=== PATIENT | female | born 1960 | race Caucasian/White ===

== ENCOUNTER 2021-10-16 09:03 | Inpatient (IN) | payer MEDICAID ==
[~2021-10-16] VITALS: Ht 162.6 cm; Wt 70.4 kg
[~2021-10-16 09:03] MED LIST: ALBU8HFA PO; LIDOcaine 2% (20 mg/ml) 5ml cardiac syringe ONE; MAGNESIUM SULFATE 4 MEQ/ML (5gm/10ml) injection ONE; NO HOME MEDS; NORepinephrine 1 mg/ml inj IV ONE; albumin (human) 25% 100 ML IV solution IV ONE; aminocaproic acid 250 MG/1 ML inj. ONE; calcium chloride 100 MG/1 ML inj IV ONE; heparin 1,000 units/ml 10ml inj ONE; isoflurane 100ml inhalation liquid IH ONE; methylPREDNISolone sod succ 1000mg vial ONE; phenylephrine 10mg/ml inj. ONE; potassium Cl 2 mEq/ml inj IV ONE; sodium bicarbonate (8.4%) 1 mEq/ml syringe ONE
[2021-10-16 09:52] LABS: BASOPHILS % (AUTO) 0.3 % (0-1); EOSINOPHILS # (AUTO) 0.1 X10'3 (0-0.9); EOSINOPHILS % (AUTO) 0.7 % (0-6); HEMATOCRIT 41.2 % (35.0-45.0); HEMOGLOBIN 14.1 g/dl (12.0-16.0); LYMPHOCYTES # (AUTO) 1.1 X10'3 (1.1-4.8); LYMPHOCYTES % (AUTO) 11.4 % (21-51); MEAN CORPUSCULAR HEMOGLOBIN 31.8 PG (27.0-31.0); MEAN CORPUSCULAR HGB CONC 34.2 g/dL (33.0-36.5); MEAN PLATELET VOLUME 8.6 FL (7.4-10.4); MONOCYTES # (AUTO) 0.9 X10'3 (0-0.9); MONOCYTES % (AUTO) 9.6 % (2-12); NEUTROPHILS # (AUTO) 7.6 X10'3 (1.8-7.7); PLATELET COUNT 175 X10'3 (140-440); RED BLOOD COUNT 4.43 X10'6 (4.20-5.60); RED CELL DISTRIBUTION WIDTH 13.1 % (11.5-14.5); WHITE BLOOD COUNT 9.8 X10'3 (4.5-11.0)
[2021-10-16 10:09] LABS: ALANINE AMINOTRANSFERASE 29 U/L (12-78); ALBUMIN 3.4 G/DL (3.4-5.0); ALBUMIN/GLOBULIN RATIO 0.8 (1.1-1.5); ALKALINE PHOSPHATASE 133 IU/L (46-116); ANION GAP 8 (8-16); ASPARTATE AMINO TRANSFERASE 29 U/L (10-37); BILIRUBIN,TOTAL 0.6 MG/DL (0.1-1.0); BLOOD UREA NITROGEN 14 MG/DL (7-18); BUN/CREATININE RATIO 14.7 (6.6-38.0); CHLORIDE 103 MMOL/L (99-107); CREATININE 0.95 MG/DL (0.40-0.90); GLUCOSE 137 MG/DL (70-104); POTASSIUM 3.9 MMOL/L (3.5-5.1); SODIUM 135 MMOL/L (135-145); TOTAL CARBON DIOXIDE 24.2 MMOL/L (24-32); TOTAL PROTEIN 7.7 G/DL (6.4-8.2); eGFR 60 ML/MIN
[2021-10-16] MEDS ORDERED: iohexol 350MG/ML 100ml bottle IV ONE (10:39)
[2021-10-16] MEDS ORDERED: aspirin 325mg tablet PO ONE (10:50)
[2021-10-16] MEDS ORDERED: ondansetron/PF 4mg/2ml inj IV PRN (11:45)
[2021-10-16] MEDS ORDERED: nitroGLYCERIN 0.4mg SUBLingual tab SL PRN (11:45)
[2021-10-16] MEDS ORDERED: potassium Cl 20 mEq SR tablet PO PRN ×2 (11:45)
[2021-10-16] MEDS ORDERED: PERFLUTREN PROTEIN-A MICROSPHR (Optison) 0.22 MG/ML 3ML VIAL IV ONE (11:45)
[2021-10-16] MEDS ORDERED: aminophylline 250mg/10ml inj. IV PRN (11:45)
[2021-10-16] MEDS ORDERED: regadenoson 0.4mg/5ml syringe IV ONE (11:45)
[2021-10-16] MEDS ORDERED: morphine 2 MG/ML inj. syringe IV PRN ×2 (11:45)
[2021-10-16] MEDS ORDERED: magnesium 2GM in 50ml NS 50 ML IV PRN (11:45)
[2021-10-16] MEDS ORDERED: metoprolol tartrate 1mg/ml inj IV PRN (11:45)
[2021-10-16] MEDS ORDERED: magnesium Cl slow-release 64mg tablet PO PRN (11:45)
[2021-10-16] MEDS ORDERED: heparin 25,000 UNIT/250ml bag 250 ML IV SCH (11:45)
[2021-10-16] MEDS ORDERED: potassium CL 10mEq/100ml bag 100 ML IV PRN (11:45)
[2021-10-16] MEDS ORDERED: magnesium 4gm in 100ml NS 100 ML IV PRN (11:45)
[2021-10-16] MEDS ORDERED: acetaminophen 325mg tablet PO PRN (11:45)
[2021-10-16] MEDS ORDERED: heparin 10,000 units/1 ML INJ IV ONE (11:45)
[2021-10-16 12:44] LABS: APTT 25 SECONDS (22-32)
[2021-10-16 12:50] LABS: MAGNESIUM 1.9 MG/DL (1.5-2.4)
[2021-10-16] MEDS ORDERED: NO HOME MEDS (18:28)
--- NOTE | 2021-10-16 19:04 | NUR ---
assumed care of pt. pt tearful and does not want to be here. encouraged pt to stay, offered assistance, none needed. denies pain aox4 pwd quiros. will CTM
[2021-10-16] MEDS ORDERED: albuterol 2.5 MG/3 ML nebule NEB PRN (19:10)
[2021-10-16] MEDS: CefTRIAXone 2gm/D5W 50ml BAG 50 ML IV SCH (19:11)
[2021-10-16] MEDS: K and/or MAG REPLACEMENT MC SCH (19:46)
--- NOTE | 2021-10-16 20:38 | NUR ---
report to Carolina MALDONADO on pcu
--- NOTE | 2021-10-16 21:30 | NUR ---
Patient in room PCU 3020. I have received report from Constantino MALDONADO and had the opportunity to ask questions and assume patient care.
[2021-10-16 22:00] VITALS: BP 100/68
[2021-10-17] VITALS (16 sets, daily range): BP systolic 48–106; BP diastolic 29–70
--- NOTE | 2021-10-17 00:25 | NUR ---
Informed pt.'s troponin of [address] Brown. He prescribed aspirin 81 mg once daily.
[2021-10-17] MEDS ORDERED: heparin 25,000 UNIT/250ml bag 250 ML IV SCH ×2 (05:40)
[2021-10-17] MEDS ORDERED: heparin 10,000 units/1 ML INJ IV ONE ×2 (05:40)
[2021-10-17] MEDS ORDERED: heparin 10,000 units/1 ML INJ IV PRN (05:40)
--- NOTE | 2021-10-17 06:43 | NUR ---
Problems reprioritized. Patient report given, questions answered & plan of care reviewed with Bhumi MALDONADO.
--- NOTE | 2021-10-17 06:44 | NUR ---
Den Ptt at 2300. Relayed the results to Dr. Brown and pt was to be placed on heparin protocol. I checked both omnicells and no heparin bags available. I called pharmacy and the pharmacist told me to wait until he's able to fill the bag. I waited and by 0500, I talked to the pharmacist to get an update and he was waiting on Dr. brown's approval. Heparin gtt now rescheduled to 0540am. I was unable to start it as a new PTT needs to be drawn and shift change was approaching.
--- NOTE | 2021-10-17 07:02 | NUR ---
Patient in room PCU 3020. I have received report from Carolina Piedra and had the opportunity to ask questions and assume patient care.
[2021-10-17 07:52] LABS: APTT 31 SECONDS (22-32)
[2021-10-17 07:54] LABS: BASOPHILS % (AUTO) 0.3 % (0-1); EOSINOPHILS % (AUTO) 0.4 % (0-6); HEMATOCRIT 37.7 % (35.0-45.0); LYMPHOCYTES # (AUTO) 1.2 X10'3 (1.1-4.8); LYMPHOCYTES % (AUTO) 10.2 % (21-51); MEAN CORPUSCULAR HEMOGLOBIN 31.8 PG (27.0-31.0); MEAN CORPUSCULAR HGB CONC 34.4 g/dL (33.0-36.5); MEAN CORPUSCULAR VOLUME 92.5 FL (78-98); MEAN PLATELET VOLUME 9.2 FL (7.4-10.4); MONOCYTES # (AUTO) 1.3 X10'3 (0-0.9); MONOCYTES % (AUTO) 11.4 % (2-12); NEUTROPHILS # (AUTO) 8.8 X10'3 (1.8-7.7); NEUTROPHILS % (AUTO) 77.7 % (42-75); PLATELET COUNT 212 X10'3 (140-440); RED BLOOD COUNT 4.08 X10'6 (4.20-5.60); RED CELL DISTRIBUTION WIDTH 12.6 % (11.5-14.5); WHITE BLOOD COUNT 11.4 X10'3 (4.5-11.0)
[2021-10-17 07:58] LABS: ALANINE AMINOTRANSFERASE 24 U/L (12-78); ALBUMIN 3.1 G/DL (3.4-5.0); ALBUMIN/GLOBULIN RATIO 0.7 (1.1-1.5); ALKALINE PHOSPHATASE 124 IU/L (46-116); ANION GAP 13 (8-16); ASPARTATE AMINO TRANSFERASE 21 U/L (10-37); BILIRUBIN,TOTAL 0.6 MG/DL (0.1-1.0); BLOOD UREA NITROGEN 18 MG/DL (7-18); CALCIUM 8.8 MG/DL (8.5-10.1); CHLORIDE 100 MMOL/L (99-107); CHOL/HDL RATIO 2.5 (0.00-4.99); CHOLESTEROL 169 MG/DL (0-200); CREATININE 1.06 MG/DL (0.40-0.90); GLUCOSE 107 MG/DL (70-104); HDL CHOLESTEROL 68 MG/DL (35-60); LDL CHOLESTEROL 83 MG/DL (50-100); MAGNESIUM 1.8 MG/DL (1.5-2.4); POTASSIUM 4.1 MMOL/L (3.5-5.1); SODIUM 134 MMOL/L (135-145); TOTAL CARBON DIOXIDE 21.1 MMOL/L (24-32); TOTAL PROTEIN 7.3 G/DL (6.4-8.2); TRIGLYCERIDES 59 MG/DL (20-135); eGFR 53 ML/MIN
[2021-10-17] MEDS: K and/or MAG REPLACEMENT MC SCH ×2 (08:00→20:00)
[2021-10-17] MEDS ORDERED: regadenoson 0.4mg/5ml syringe IV ONE (09:25)
[2021-10-17] MEDS: aspirin 81mg, enteric-coated 1 TAB TABLET.DR PO SCH (10:15)
--- NOTE | 2021-10-17 11:37 | NUR ---
Dr. Francis made aware via [employer] messenger that patient is requesting to speak with her.
[2021-10-17] MEDS: CefTRIAXone 2gm/D5W 50ml BAG 50 ML IV SCH (13:14)
[2021-10-17] MEDS ORDERED: NITR0.4T51 SL ×2 (14:43)
--- NOTE | 2021-10-17 17:56 | NUR ---
Patient has had a chest CT that shows ascending aorta at 3.7cm. Dr. Madera indicated in his note to have repeat heart cath. Will follow along and assist if and where requested.
--- NOTE | 2021-10-17 18:36 | NUR ---
Problems reprioritized. Patient report given, questions answered & plan of care reviewed with Joselin.
[2021-10-17] MEDS: temazepam 15mg capsule PO PRN (21:07)
[2021-10-17] MEDS: acetaminophen 325mg tablet PO PRN (21:07)
[2021-10-17] MEDS: lactobacillus rhamnosus 10,000 MMU CELLS/CAPSULE PO SCH (21:07)
[2021-10-17] MEDS: heparin 10,000 units/1 ML INJ IV PRN (21:24)
[2021-10-18 02:00] VITALS: BP 133/64
[2021-10-18] MEDS: heparin 10,000 units/1 ML INJ IV PRN (05:54)
[2021-10-18 06:00] VITALS: BP 112/56
--- NOTE | 2021-10-18 06:10 | NUR ---
Patient in room PCU 3020. I have received report from Joselin MALDONADO and had the opportunity to ask questions and assume patient care.
[2021-10-18] MEDS: CefTRIAXone 2gm/D5W 50ml BAG 50 ML IV SCH (07:34)
[2021-10-18] MEDS: lactobacillus rhamnosus 10,000 MMU CELLS/CAPSULE PO SCH ×2 (07:38→20:55)
[2021-10-18] MEDS: aspirin 81mg, enteric-coated 1 TAB TABLET.DR PO SCH (07:38)
[2021-10-18] MEDS: K and/or MAG REPLACEMENT MC SCH ×2 (08:00→20:00)
[2021-10-18 08:05] LABS: BASOPHILS % (AUTO) 0.2 % (0-1); EOSINOPHILS # (AUTO) 0.1 X10'3 (0-0.9); EOSINOPHILS % (AUTO) 1.7 % (0-6); HEMATOCRIT 37.7 % (35.0-45.0); HEMOGLOBIN 12.9 g/dl (12.0-16.0); LYMPHOCYTES # (AUTO) 1.1 X10'3 (1.1-4.8); LYMPHOCYTES % (AUTO) 15.1 % (21-51); MEAN CORPUSCULAR HEMOGLOBIN 31.6 PG (27.0-31.0); MEAN CORPUSCULAR HGB CONC 34.1 g/dL (33.0-36.5); MEAN CORPUSCULAR VOLUME 92.6 FL (78-98); MEAN PLATELET VOLUME 9.2 FL (7.4-10.4); MONOCYTES # (AUTO) 0.8 X10'3 (0-0.9); MONOCYTES % (AUTO) 10.7 % (2-12); NEUTROPHILS # (AUTO) 5.2 X10'3 (1.8-7.7); NEUTROPHILS % (AUTO) 72.3 % (42-75); PLATELET COUNT 201 X10'3 (140-440); RED BLOOD COUNT 4.07 X10'6 (4.20-5.60); RED CELL DISTRIBUTION WIDTH 12.6 % (11.5-14.5); WHITE BLOOD COUNT 7.1 X10'3 (4.5-11.0)
[2021-10-18 08:17] LABS: ALANINE AMINOTRANSFERASE 22 U/L (12-78); ALBUMIN 2.9 G/DL (3.4-5.0); ALBUMIN/GLOBULIN RATIO 0.6 (1.1-1.5); ALKALINE PHOSPHATASE 115 IU/L (46-116); ANION GAP 10 (8-16); ASPARTATE AMINO TRANSFERASE 20 U/L (10-37); BILIRUBIN,TOTAL 0.3 MG/DL (0.1-1.0); BLOOD UREA NITROGEN 25 MG/DL (7-18); BUN/CREATININE RATIO 24.3 (6.6-38.0); CALCIUM 8.5 MG/DL (8.5-10.1); CHLORIDE 105 MMOL/L (99-107); CREATININE 1.03 MG/DL (0.40-0.90); GLUCOSE 160 MG/DL (70-104); MAGNESIUM 1.9 MG/DL (1.5-2.4); POTASSIUM 3.7 MMOL/L (3.5-5.1); SODIUM 137 MMOL/L (135-145); TOTAL CARBON DIOXIDE 21.7 MMOL/L (24-32); TOTAL PROTEIN 7.5 G/DL (6.4-8.2); eGFR 55 ML/MIN
[2021-10-18 11:00] VITALS: BP 110/65
--- NOTE | 2021-10-18 11:35 | NUR ---
PAGER ID: [phone] MESSAGE: Re: Abi Oscar. Room: 3020. Can Heparin drip be DC'd? Dr. Madera' note says okay to DC Heparin. -Kamlesh [facility] #[phone] -Dr. Francis paged concerning Pt's Heparin drip.
[2021-10-18 18:00] VITALS: BP 94/62
--- NOTE | 2021-10-18 18:15 | NUR ---
Problems reprioritized. Patient report given, questions answered & plan of care reviewed with Joselin MALDONADO.
[2021-10-18] MEDS: temazepam 15mg capsule PO PRN (20:55)
[2021-10-18 22:00] VITALS: BP 91/57
[2021-10-19] MEDS ORDERED: guaiFENesin 200 MG/10 ML oral syrup UD cup PO PRN
[2021-10-19 02:00] VITALS: BP 96/81
--- NOTE | 2021-10-19 04:00 | NUR ---
Pt reported feeling better after getting the cough medication. Po Hydration given.
--- NOTE | 2021-10-19 05:00 | NUR ---
Plan of care verbalized to pt. Pt encouraged to verbalize feeling but preferred to sleep, denied any discomfort at this time.
--- NOTE | 2021-10-19 06:15 | NUR ---
Patient in room PCU 3020. I have received report from Joselin MALDONADO and had the opportunity to ask questions and assume patient care.
[2021-10-19] MEDS: aspirin 81mg, enteric-coated 1 TAB TABLET.DR PO SCH (07:58)
[2021-10-19] MEDS: CefTRIAXone 2gm/D5W 50ml BAG 50 ML IV SCH (07:58)
[2021-10-19] MEDS: lactobacillus rhamnosus 10,000 MMU CELLS/CAPSULE PO SCH ×2 (07:58→19:43)
[2021-10-19] MEDS: K and/or MAG REPLACEMENT MC SCH ×2 (08:00→19:55)
--- NOTE | 2021-10-19 09:46 | NUR ---
PAGER ID: [phone] MESSAGE: Re: Abi Oscar. Room: 3020. Pt wants to leave AMA. -Kamlesh [facility] #[phone] -Dr. Francis paged concerning Pt wanting to leave AMA.
[2021-10-19 11:54] LABS: BASOPHILS % (AUTO) 0.2 % (0-1); EOSINOPHILS # (AUTO) 0.2 X10'3 (0-0.9); EOSINOPHILS % (AUTO) 2.7 % (0-6); HEMATOCRIT 36.7 % (35.0-45.0); HEMOGLOBIN 12.7 g/dl (12.0-16.0); LYMPHOCYTES % (AUTO) 13.6 % (21-51); MEAN CORPUSCULAR HEMOGLOBIN 31.6 PG (27.0-31.0); MEAN CORPUSCULAR HGB CONC 34.7 g/dL (33.0-36.5); MEAN CORPUSCULAR VOLUME 91.2 FL (78-98); MEAN PLATELET VOLUME 8.5 FL (7.4-10.4); MONOCYTES # (AUTO) 0.8 X10'3 (0-0.9); MONOCYTES % (AUTO) 11.7 % (2-12); NEUTROPHILS # (AUTO) 5.1 X10'3 (1.8-7.7); NEUTROPHILS % (AUTO) 71.8 % (42-75); PLATELET COUNT 247 X10'3 (140-440); RED BLOOD COUNT 4.02 X10'6 (4.20-5.60); RED CELL DISTRIBUTION WIDTH 12.6 % (11.5-14.5); WHITE BLOOD COUNT 7.2 X10'3 (4.5-11.0)
[2021-10-19 12:05] LABS: ALANINE AMINOTRANSFERASE 19 U/L (12-78); ALBUMIN 2.9 G/DL (3.4-5.0); ALBUMIN/GLOBULIN RATIO 0.6 (1.1-1.5); ALKALINE PHOSPHATASE 113 IU/L (46-116); ANION GAP 10 (8-16); ASPARTATE AMINO TRANSFERASE 23 U/L (10-37); BILIRUBIN,TOTAL 0.2 MG/DL (0.1-1.0); BLOOD UREA NITROGEN 21 MG/DL (7-18); BUN/CREATININE RATIO 22.1 (6.6-38.0); CALCIUM 8.7 MG/DL (8.5-10.1); CHLORIDE 105 MMOL/L (99-107); CREATININE 0.95 MG/DL (0.40-0.90); GLUCOSE 112 MG/DL (70-104); MAGNESIUM 2.1 MG/DL (1.5-2.4); POTASSIUM 4.6 MMOL/L (3.5-5.1); SODIUM 138 MMOL/L (135-145); TOTAL CARBON DIOXIDE 23.1 MMOL/L (24-32); TOTAL PROTEIN 7.7 G/DL (6.4-8.2); eGFR 60 ML/MIN
[2021-10-19 15:00] VITALS: BP 101/57
[2021-10-19] MEDS ORDERED: ringers solution, lacted 1,000 ML IV ONE (15:50)
[2021-10-19 18:00] VITALS: BP 117/72
--- NOTE | 2021-10-19 18:30 | NUR ---
Problems reprioritized. Patient report given, questions answered & plan of care reviewed with Selin MALDONADO.
[2021-10-19] MEDS: temazepam 15mg capsule PO PRN (21:23)
[2021-10-19 22:00] VITALS: BP 96/54
[2021-10-20 02:00] VITALS: BP 92/51
[2021-10-20 06:00] VITALS: BP 93/66
[2021-10-20] MEDS ORDERED: LORazepam 2 mg/ml vial IV ONE (06:00)
[2021-10-20] MEDS ORDERED: famotidine/PF 10 mg/ml inj IV ONE (06:00)
--- NOTE | 2021-10-20 06:25 | NUR ---
Problems reprioritized. Patient report given, questions answered & plan of care reviewed with Zaina MALDONADO.
[2021-10-20 06:36] LABS: BASOPHILS % (AUTO) 0.3 % (0-1); EOSINOPHILS # (AUTO) 0.3 X10'3 (0-0.9); EOSINOPHILS % (AUTO) 4.1 % (0-6); HEMATOCRIT 35.3 % (35.0-45.0); HEMOGLOBIN 12.4 g/dl (12.0-16.0); LYMPHOCYTES # (AUTO) 1.3 X10'3 (1.1-4.8); LYMPHOCYTES % (AUTO) 19.3 % (21-51); MEAN CORPUSCULAR HEMOGLOBIN 32.1 PG (27.0-31.0); MEAN CORPUSCULAR HGB CONC 35.1 g/dL (33.0-36.5); MEAN CORPUSCULAR VOLUME 91.5 FL (78-98); MEAN PLATELET VOLUME 8.4 FL (7.4-10.4); MONOCYTES # (AUTO) 0.8 X10'3 (0-0.9); MONOCYTES % (AUTO) 11.5 % (2-12); NEUTROPHILS # (AUTO) 4.4 X10'3 (1.8-7.7); NEUTROPHILS % (AUTO) 64.8 % (42-75); PLATELET COUNT 275 X10'3 (140-440); RED BLOOD COUNT 3.85 X10'6 (4.20-5.60); RED CELL DISTRIBUTION WIDTH 12.3 % (11.5-14.5); WHITE BLOOD COUNT 6.8 X10'3 (4.5-11.0)
[2021-10-20 06:54] LABS: ALANINE AMINOTRANSFERASE 21 U/L (12-78); ALBUMIN 2.9 G/DL (3.4-5.0); ALBUMIN/GLOBULIN RATIO 0.6 (1.1-1.5); ALKALINE PHOSPHATASE 114 IU/L (46-116); ANION GAP 9 (8-16); ASPARTATE AMINO TRANSFERASE 24 U/L (10-37); BILIRUBIN,TOTAL 0.2 MG/DL (0.1-1.0); BLOOD UREA NITROGEN 24 MG/DL (7-18); CALCIUM 8.6 MG/DL (8.5-10.1); CHLORIDE 106 MMOL/L (99-107); CREATININE 0.96 MG/DL (0.40-0.90); GLUCOSE 94 MG/DL (70-104); MAGNESIUM 2.1 MG/DL (1.5-2.4); POTASSIUM 4.4 MMOL/L (3.5-5.1); SODIUM 138 MMOL/L (135-145); TOTAL CARBON DIOXIDE 22.6 MMOL/L (24-32); TOTAL PROTEIN 7.6 G/DL (6.4-8.2); eGFR 59 ML/MIN
[2021-10-20] MEDS: K and/or MAG REPLACEMENT MC SCH ×2 (08:00→20:00)
[2021-10-20] MEDS: CefTRIAXone 2gm/D5W 50ml BAG 50 ML IV SCH (08:53)
[2021-10-20] MEDS: aspirin 81mg, enteric-coated 1 TAB TABLET.DR PO SCH (08:53)
[2021-10-20] MEDS: lactobacillus rhamnosus 10,000 MMU CELLS/CAPSULE PO SCH ×2 (08:53→19:30)
[2021-10-20] MEDS ORDERED: MESSAGE TO NURSING PO ONE ×3 (09:15→10:00)
[2021-10-20] MEDS ORDERED: MESSAGE TO PHARMACY IJ ONE (09:15)
[2021-10-20 10:35] LABS: APTT 27 SECONDS (22-32)
[2021-10-20 11:57] LABS: ABG BASE EXCESS -3.1 mmol/L (-2.0-2.0); ABG HCO3 19.9 mmol/L (22.0-26.0); ABG OXYGEN SATURATION 97.1 % (94-97); ABG PCO2 (T) 29.7 mmHg (32.0-45.0); ALLEN'S TEST POSITIVE; FCOHb 0.2 % (0.0-3.9); FMetHb 0.2 % (0.0-1.5); FO2Hb 96.7 % (94-97); TOTAL HEMOGLOBIN 12.7 G/dl (12.0-16.0)
--- NOTE | 2021-10-20 13:34 | NUR ---
Initial: Pt admitted w/ severe aortic stenosis, angina, and COPD per EMR. Pt apparently going for aortic valve replacement, diagnostic procedure of the lung mass 10/21 per MD note. Pt currently on Heart Healthy diet w/ mostly 75% intake of meals meeting needs. Pt may benefit from high protein diet education s/p procedure when appropriate. Recommend liberalize to Regular diet given lipid panel WNL with exception of high HDL. LBM 10/17. No nutrition intervention implemented at this time, will continue to monitor. Recs: 1. Liberalize to Regular diet; Lipid panel WNL, high HDL 2. Consider Bharat smoothies post op 3. Bowel care per rx 4. Weekly wts 5. High protein diet education by RD post op once appropriate Addendum: 10/20/21 at [address] Amended: Links added.
[2021-10-20 18:00] VITALS: BP 97/74
[2021-10-20] MEDS: temazepam 15mg capsule PO PRN (19:33)
[2021-10-20 22:00] VITALS: BP 100/61
[2021-10-21] MEDS ORDERED: MESSAGE TO NURSING PO ONE ×2 (01:30→05:30)
[2021-10-21 02:00] VITALS: BP 91/65
[2021-10-21] MEDS ORDERED: cefazolin/dext.iso 2gm/50ml 50 ML IV ONE (05:30)
[2021-10-21] MEDS ORDERED: ringers solution, lacted 1,000 ML IV ONE (05:30)
[2021-10-21] MEDS ORDERED: LORazepam 2 mg/ml vial IV ONE (05:30)
[2021-10-21] MEDS ORDERED: insulin glargine (Lantus) pen - multi-dose SQ PRN (05:30)
[2021-10-21] MEDS ORDERED: dextrose 50%-water 50ml dispensing syringe IV PRN (05:30)
[2021-10-21] MEDS ORDERED: vancomycin/NS 1 GM ADD-VANTAGE 250 ML IV ONE (05:30)
[2021-10-21] MEDS ORDERED: famotidine/PF 10 mg/ml inj IV ONE (05:30)
[2021-10-21] MEDS ORDERED: gabapentin 400mg capsule PO ONE (05:30)
[2021-10-21] MEDS ORDERED: MALTODEXTRIN/FRUCTOSE 0.68 KCAL/ML LIQUID 296ML BOTTLE PO ONE (05:30)
[2021-10-21] MEDS ORDERED: Insulin Reg/NS 100units/100mL 100 ML IV SCH (05:30)
[2021-10-21] MEDS ORDERED: mupirocin 2% nasal ointment 1gm UD NS SCH (05:30)
--- NOTE | 2021-10-21 06:18 | NUR ---
Problems reprioritized. Patient report given, questions answered & plan of care reviewed with Sofi MALDONADO.
[2021-10-21 06:34] LABS: BASOPHILS % (AUTO) 0.3 % (0-1); EOSINOPHILS # (AUTO) 0.2 X10'3 (0-0.9); EOSINOPHILS % (AUTO) 3.4 % (0-6); HEMATOCRIT 35.2 % (35.0-45.0); HEMOGLOBIN 12.4 g/dl (12.0-16.0); LYMPHOCYTES # (AUTO) 1.1 X10'3 (1.1-4.8); LYMPHOCYTES % (AUTO) 19.5 % (21-51); MEAN CORPUSCULAR HEMOGLOBIN 31.8 PG (27.0-31.0); MEAN CORPUSCULAR HGB CONC 35.1 g/dL (33.0-36.5); MEAN CORPUSCULAR VOLUME 90.7 FL (78-98); MEAN PLATELET VOLUME 8.1 FL (7.4-10.4); MONOCYTES # (AUTO) 0.6 X10'3 (0-0.9); MONOCYTES % (AUTO) 10.2 % (2-12); NEUTROPHILS # (AUTO) 3.8 X10'3 (1.8-7.7); NEUTROPHILS % (AUTO) 66.6 % (42-75); PLATELET COUNT 265 X10'3 (140-440); RED BLOOD COUNT 3.88 X10'6 (4.20-5.60); RED CELL DISTRIBUTION WIDTH 12.5 % (11.5-14.5); WHITE BLOOD COUNT 5.8 X10'3 (4.5-11.0)
[2021-10-21 06:59] LABS: ALANINE AMINOTRANSFERASE 20 U/L (12-78); ALBUMIN 2.8 G/DL (3.4-5.0); ALBUMIN/GLOBULIN RATIO 0.6 (1.1-1.5); ALKALINE PHOSPHATASE 105 IU/L (46-116); ANION GAP 8 (8-16); ASPARTATE AMINO TRANSFERASE 26 U/L (10-37); BILIRUBIN,TOTAL 0.2 MG/DL (0.1-1.0); BLOOD UREA NITROGEN 22 MG/DL (7-18); BUN/CREATININE RATIO 23.2 (6.6-38.0); CALCIUM 8.5 MG/DL (8.5-10.1); CHLORIDE 108 MMOL/L (99-107); CREATININE 0.95 MG/DL (0.40-0.90); GLUCOSE 102 MG/DL (70-104); POTASSIUM 4.3 MMOL/L (3.5-5.1); SODIUM 139 MMOL/L (135-145); TOTAL CARBON DIOXIDE 22.6 MMOL/L (24-32); TOTAL PROTEIN 7.3 G/DL (6.4-8.2); eGFR 60 ML/MIN
[2021-10-21 07:00] VITALS: BP 112/61
[2021-10-21] MEDS: K and/or MAG REPLACEMENT MC SCH ×2 (08:00→20:00)
[2021-10-21] MEDS: lactobacillus rhamnosus 10,000 MMU CELLS/CAPSULE PO SCH ×2 (08:48→20:17)
[2021-10-21] MEDS: CefTRIAXone 2gm/D5W 50ml BAG 50 ML IV SCH (08:48)
[2021-10-21] MEDS: aspirin 81mg, enteric-coated 1 TAB TABLET.DR PO SCH (08:48)
[2021-10-21 11:00] VITALS: BP 100/58
[2021-10-21 15:00] VITALS: BP 105/67
[2021-10-21 18:00] VITALS: BP 125/76
--- NOTE | 2021-10-21 18:18 | NUR ---
Problems reprioritized. Patient report given, questions answered & plan of care reviewed with Carolina MALDONADO . Pt resting in room in no acute distress.
--- NOTE | 2021-10-21 18:22 | NUR ---
Patient in room PCU 3020. I have received report from Deepti and had the opportunity to ask questions and assume patient care.
[2021-10-21 22:00] VITALS: BP 112/64
[2021-10-21] MEDS: temazepam 15mg capsule PO PRN (22:03)
[2021-10-22 02:00] VITALS: BP 100/51
[2021-10-22] MEDS ORDERED: vancomycin/NS 1 GM ADD-VANTAGE 250 ML IV ONE (05:30)
[2021-10-22] MEDS ORDERED: gabapentin 400mg capsule PO ONE (05:30)
[2021-10-22] MEDS ORDERED: insulin glargine (Lantus) pen - multi-dose SQ PRN (05:30)
[2021-10-22] MEDS ORDERED: dextrose 50%-water 50ml dispensing syringe IV PRN (05:30)
[2021-10-22] MEDS ORDERED: ringers solution, lacted 1,000 ML IV ONE (05:30)
[2021-10-22] MEDS ORDERED: Insulin Reg/NS 100units/100mL 100 ML IV SCH (05:30)
[2021-10-22] MEDS ORDERED: famotidine/PF 10 mg/ml inj IV ONE (05:30)
[2021-10-22] MEDS ORDERED: MALTODEXTRIN/FRUCTOSE 0.68 KCAL/ML LIQUID 296ML BOTTLE PO ONE ×2 (05:30)
[2021-10-22] MEDS ORDERED: cefazolin/dext.iso 2gm/50ml 50 ML IV ONE ×2 (05:30)
--- NOTE | 2021-10-22 06:16 | NUR ---
Problems reprioritized. Patient report given, questions answered & plan of care reviewed with Andra MALDONADO.
--- NOTE | 2021-10-22 06:36 | NUR ---
Patient in room PCU 3020. I have received report from Carolina MALDONADO and had the opportunity to ask questions and assume patient care.
[2021-10-22 07:00] VITALS: BP 102/55
[2021-10-22 07:22] LABS: BASOPHILS % (AUTO) 0.5 % (0-1); EOSINOPHILS # (AUTO) 0.1 X10'3 (0-0.9); LYMPHOCYTES # (AUTO) 0.9 X10'3 (1.1-4.8); LYMPHOCYTES % (AUTO) 20.4 % (21-51); MEAN CORPUSCULAR HEMOGLOBIN 31.3 PG (27.0-31.0); MEAN CORPUSCULAR HGB CONC 33.7 g/dL (33.0-36.5); MEAN PLATELET VOLUME 8.2 FL (7.4-10.4); MONOCYTES # (AUTO) 0.4 X10'3 (0-0.9); MONOCYTES % (AUTO) 9.9 % (2-12); NEUTROPHILS # (AUTO) 2.9 X10'3 (1.8-7.7); NEUTROPHILS % (AUTO) 66.2 % (42-75); PRE OP HEMATOCRIT 34.7 % (35.0-45.0); PRE OP HEMOGLOBIN 11.7 g/dL (12.0-16.0); PRE OP PLATELET COUNT 266 X10'3 (140-440); RED BLOOD COUNT 3.73 X10'6 (4.20-5.60); RED CELL DISTRIBUTION WIDTH 12.7 % (11.5-14.5)
[2021-10-22 07:41] LABS: ALBUMIN 2.7 G/DL (3.4-5.0); BLOOD UREA NITROGEN 19 MG/DL (7-18); BUN/CREATININE RATIO 20.2 (6.6-38.0); CALCIUM 8.5 MG/DL (8.5-10.1); CHLORIDE 108 MMOL/L (99-107); CREATININE 0.94 MG/DL (0.40-0.90); PRE OP ANION GAP 12 (8-16); PRE OP GLUCOSE 87 MG/DL (70-104); PRE OP POTASSIUM 4.2 MMOL/L (3.4-5.1); PRE OP SODIUM 141 MMOL/L (135-145); TOTAL CARBON DIOXIDE 21.5 MMOL/L (24-32); eGFR 61 ML/MIN
[2021-10-22] MEDS: aspirin 81mg, enteric-coated 1 TAB TABLET.DR PO SCH (07:50)
[2021-10-22] MEDS: lactobacillus rhamnosus 10,000 MMU CELLS/CAPSULE PO SCH ×2 (07:50→19:56)
[2021-10-22] MEDS: CefTRIAXone 2gm/D5W 50ml BAG 50 ML IV SCH (07:50)
[2021-10-22 11:00] VITALS: BP 98/57
[2021-10-22 18:00] VITALS: BP 100/59
--- NOTE | 2021-10-22 18:18 | NUR ---
Problems reprioritized. Patient report given, questions answered & plan of care reviewed with Carolina MALDONADO. Patient resting comfortably in bed and in no acute distress.
--- NOTE | 2021-10-22 18:25 | NUR ---
Patient in room PCU 3020. I have received report from Andra MALDONADO and had the opportunity to ask questions and assume patient care.
[2021-10-22] MEDS: K and/or MAG REPLACEMENT MC SCH (20:00)
[2021-10-22 22:00] VITALS: BP 97/58
[2021-10-23 02:00] VITALS: BP 98/57
--- NOTE | 2021-10-23 06:23 | NUR ---
Problems reprioritized. Patient report given, questions answered & plan of care reviewed with Arun MALDONADO.
[2021-10-23 07:00] VITALS: BP 97/56
[2021-10-23] MEDS: K and/or MAG REPLACEMENT MC SCH ×2 (08:00→20:00)
[2021-10-23] MEDS: mupirocin 2% nasal ointment 1gm UD NS SCH ×2 (08:00→20:18)
[2021-10-23] MEDS: lactobacillus rhamnosus 10,000 MMU CELLS/CAPSULE PO SCH ×2 (08:58→20:18)
[2021-10-23] MEDS: aspirin 81mg, enteric-coated 1 TAB TABLET.DR PO SCH (08:58)
[2021-10-23] MEDS: CefTRIAXone 2gm/D5W 50ml BAG 50 ML IV SCH (08:58)
[2021-10-23 11:00] VITALS: BP 100/63
[2021-10-23 15:00] VITALS: BP 96/65
[2021-10-23 18:00] VITALS: BP 119/81
[2021-10-23] MEDS: ALPRAZolam 0.5mg tablet PO PRN (20:18)
[2021-10-23 22:00] VITALS: BP 93/44
[2021-10-24] VITALS (21 sets, daily range): BP systolic 90–140; BP diastolic 42–61
[2021-10-24] MEDS ORDERED: ceFAZolin 1000mg inj ONE (05:15)
[2021-10-24] MEDS ORDERED: epiNEPHrine 1 mg/ml inj ONE (05:15)
[2021-10-24] MEDS ORDERED: gabapentin 400mg capsule PO ONE (05:30)
[2021-10-24] MEDS: Insulin Reg/NS 100units/100mL 100 ML IV SCH ×2 (05:30→12:10)
[2021-10-24] MEDS ORDERED: cefazolin/dext.iso 2gm/50ml 50 ML IV ONE (05:30)
[2021-10-24] MEDS ORDERED: vancomycin/NS 1 GM ADD-VANTAGE 250 ML IV ONE (05:30)
[2021-10-24] MEDS ORDERED: ringers solution, lacted 1,000 ML IV ONE (05:30)
[2021-10-24] MEDS ORDERED: MALTODEXTRIN/FRUCTOSE 0.68 KCAL/ML LIQUID 296ML BOTTLE PO ONE (05:30)
[2021-10-24] MEDS ORDERED: famotidine/PF 10 mg/ml inj IV ONE (05:30)
--- NOTE | 2021-10-24 06:20 | NUR ---
Patient in room PCU 3020. I have received report from Shaunna MALDONADO and had the opportunity to ask questions and assume patient care.
--- NOTE | 2021-10-24 06:31 | NUR ---
Pre-op prep completed. BS 87. Complaining of nauseousness this a.m sebastianfran given.
[2021-10-24 06:45] LABS: ALBUMIN 2.9 G/DL (3.4-5.0); ANION GAP 8 (8-16); BASOPHILS % (AUTO) 0.5 % (0-1); BLOOD UREA NITROGEN 23 MG/DL (7-18); BUN/CREATININE RATIO 24.5 (6.6-38.0); CALCIUM 8.5 MG/DL (8.5-10.1); CHLORIDE 109 MMOL/L (99-107); CREATININE 0.94 MG/DL (0.40-0.90); EOSINOPHILS # (AUTO) 0.1 X10'3 (0-0.9); EOSINOPHILS % (AUTO) 2.9 % (0-6); GLUCOSE 94 MG/DL (70-104); HEMATOCRIT 34.5 % (35.0-45.0); HEMOGLOBIN 11.9 g/dl (12.0-16.0); LYMPHOCYTES # (AUTO) 1.2 X10'3 (1.1-4.8); LYMPHOCYTES % (AUTO) 24.3 % (21-51); MEAN CORPUSCULAR HEMOGLOBIN 31.8 PG (27.0-31.0); MEAN CORPUSCULAR HGB CONC 34.6 g/dL (33.0-36.5); MEAN CORPUSCULAR VOLUME 91.9 FL (78-98); MEAN PLATELET VOLUME 7.9 FL (7.4-10.4); MONOCYTES # (AUTO) 0.6 X10'3 (0-0.9); MONOCYTES % (AUTO) 11.1 % (2-12); NEUTROPHILS # (AUTO) 3.1 X10'3 (1.8-7.7); NEUTROPHILS % (AUTO) 61.2 % (42-75); PLATELET COUNT 277 X10'3 (140-440); POTASSIUM 4.3 MMOL/L (3.5-5.1); RED BLOOD COUNT 3.75 X10'6 (4.20-5.60); RED CELL DISTRIBUTION WIDTH 12.5 % (11.5-14.5); SODIUM 140 MMOL/L (135-145); TOTAL CARBON DIOXIDE 23.5 MMOL/L (24-32); WHITE BLOOD COUNT 5.1 X10'3 (4.5-11.0); eGFR 61 ML/MIN
[2021-10-24] MEDS ORDERED: SUFENTANIL CITRATE 50 MCG/ML 2ml ampule IV ONE (06:47)
[2021-10-24] MEDS ORDERED: MIDAZolam 1mg/ml 10ml vial ONE (06:47)
[2021-10-24] MEDS ORDERED: midazolam 100mg in NS 100ml 100 ML IV PRN (06:55)
[2021-10-24] MEDS ORDERED: fentaNYL/PF 50MCG/1 ML 2ML syringe IV PRN (06:55)
[2021-10-24] MEDS ORDERED: FENTANYL-0.9 % NACL/PF 100 ML IV PRN (06:55)
[2021-10-24] MEDS ORDERED: midazolam 1 mg/ML 2ml injection IV ONE (06:55)
--- NOTE | 2021-10-24 07:09 | NUR ---
Pt taken down by CVOR team to OR for AVR
[2021-10-24] MEDS ORDERED: LORazepam 2 mg/ml vial IV ONE (07:30)
[2021-10-24] MEDS: K and/or MAG REPLACEMENT MC SCH ×2 (08:00→20:00)
[2021-10-24] MEDS: aspirin 81mg, enteric-coated 1 TAB TABLET.DR PO SCH (08:00)
[2021-10-24] MEDS: mupirocin 2% nasal ointment 1gm UD NS SCH ×2 (08:00→21:24)
[2021-10-24] MEDS: lactobacillus rhamnosus 10,000 MMU CELLS/CAPSULE PO SCH ×2 (08:00→21:23)
[2021-10-24] MEDS ORDERED: phenylephrine 10mg/ml inj. ONE (08:01)
[2021-10-24] MEDS ORDERED: propofol inj 20 ML IV ONE (08:01)
[2021-10-24] MEDS ORDERED: LIDOcaine 2% (20mg/ml) 5ml vial ONE (08:01)
[2021-10-24] MEDS ORDERED: rocuronium 10mg/ml inj IV ONE ×3 (08:01)
[2021-10-24 08:12] LABS: ABG OXYGEN SATURATION 99.8 % (94-97); ABG PCO2 39.1 mmHg (32.0-45.0); ABG PO2 463.3 mmHg (75.0-100.0); CL (ABG) 109 mmol/L (98-110); FCOHb 0.3 % (0.0-3.9); FMetHb 0.3 % (0.0-1.5); FO2Hb 99.2 % (94-97); GLUCOSE (ABG) < 30 mg/dl (70-105); IONIZED CA (ABG) 1.09 mmol/L (1.10-1.43); K (ABG) 3.7 mmol/L (3.5-5.0); TOTAL HEMOGLOBIN 11.3 G/dl (12.0-16.0)
[2021-10-24 08:16] LABS: ABG BASE EXCESS -6.5 mmol/L (-2.0-2.0); ABG HCO3 20.5 mmol/L (22.0-26.0); ABG OXYGEN SATURATION 99.9 % (94-97); ABG PCO2 47.1 mmHg (32.0-45.0); ABG PO2 478.9 mmHg (75.0-100.0); CL (ABG) 106 mmol/L (98-110); FCOHb 0.3 % (0.0-3.9); FMetHb 0.3 % (0.0-1.5); FO2Hb 99.3 % (94-97); IONIZED CA (ABG) 1.16 mmol/L (1.10-1.43); K (ABG) 3.8 mmol/L (3.5-5.0); TOTAL HEMOGLOBIN 11.3 G/dl (12.0-16.0)
[2021-10-24 08:25] LABS: ABG BASE EXCESS -0.3 mmol/L (-2.0-2.0); ABG HCO3 23.9 mmol/L (22.0-26.0); ABG OXYGEN SATURATION 99.8 % (94-97); ABG PCO2 36.9 mmHg (32.0-45.0); ABG PO2 460.5 mmHg (75.0-100.0); CL (ABG) 102 mmol/L (98-110); FCOHb 0.4 % (0.0-3.9); FMetHb 0.3 % (0.0-1.5); FO2Hb 99.1 % (94-97); GLUCOSE (ABG) 196 mg/dl (70-105); IONIZED CA (ABG) 0.95 mmol/L (1.10-1.43); K (ABG) 5.4 mmol/L (3.5-5.0)
[2021-10-24 08:39] LABS: ABG BASE EXCESS -3.3 mmol/L (-2.0-2.0); ABG HCO3 21.3 mmol/L (22.0-26.0); ABG OXYGEN SATURATION 99.6 % (94-97); ABG PCO2 35.7 mmHg (32.0-45.0); ABG PO2 268.8 mmHg (75.0-100.0); CL (ABG) 102 mmol/L (98-110); FCOHb 0.2 % (0.0-3.9); FMetHb 0.3 % (0.0-1.5); FO2Hb 99.1 % (94-97); GLUCOSE (ABG) 147 mg/dl (70-105); IONIZED CA (ABG) 1.02 mmol/L (1.10-1.43); K (ABG) 4.3 mmol/L (3.5-5.0); TOTAL HEMOGLOBIN 7.6 G/dl (12.0-16.0)
[2021-10-24 08:58] LABS: ABG HCO3 25.7 mmol/L (22.0-26.0); ABG OXYGEN SATURATION 99.8 % (94-97); ABG PCO2 47.8 mmHg (32.0-45.0); ABG PO2 292.6 mmHg (75.0-100.0); CL (ABG) 103 mmol/L (98-110); FCOHb 0.2 % (0.0-3.9); FMetHb 0.3 % (0.0-1.5); FO2Hb 99.3 % (94-97); GLUCOSE (ABG) 138 mg/dl (70-105); IONIZED CA (ABG) 1.02 mmol/L (1.10-1.43); K (ABG) 4.3 mmol/L (3.5-5.0); TOTAL HEMOGLOBIN 7.8 G/dl (12.0-16.0)
[2021-10-24 09:32] LABS: ACTIVATED CLOTTING TIME 105 SEC (101-148)
[2021-10-24 09:32] LABS: ABG BASE EXCESS -1.9 mmol/L (-2.0-2.0); ABG HCO3 23.6 mmol/L (22.0-26.0); ABG OXYGEN SATURATION 99.7 % (94-97); ABG PCO2 43.9 mmHg (32.0-45.0); ABG PO2 356.3 mmHg (75.0-100.0); CL (ABG) 104 mmol/L (98-110); FCOHb 0.6 % (0.0-3.9); FMetHb 0.3 % (0.0-1.5); FO2Hb 98.8 % (94-97); GLUCOSE (ABG) 142 mg/dl (70-105); IONIZED CA (ABG) 1.26 mmol/L (1.10-1.43); TOTAL HEMOGLOBIN 7.6 G/dl (12.0-16.0)
[2021-10-24] MEDS ORDERED: dexamethasone sod phosphate 4mg/ml inj. ONE (09:37)
[2021-10-24] MEDS ORDERED: ondansetron/PF 4mg/2ml inj ONE (09:37)
[2021-10-24] MEDS ORDERED: sodium phosphate inj. 30 MMOL in dextrose 5%-water 250 ML IV PRN (09:50)
[2021-10-24] MEDS ORDERED: magnesium citrate 296ml oral solution PO PRN (09:50)
[2021-10-24] MEDS ORDERED: magnesium 4gm in 100ml NS 100 ML IV PRN (09:50)
[2021-10-24] MEDS ORDERED: potassium Cl 20 mEq SR tablet PO PRN (09:50)
[2021-10-24] MEDS ORDERED: morphine 2 MG/ML inj. syringe IV PRN (09:50)
[2021-10-24] MEDS ORDERED: magnesium hydroxide 30ml (MOM) UD suspension PO PRN (09:50)
[2021-10-24] MEDS ORDERED: magnesium 2GM in 50ml NS 50 ML IV PRN (09:50)
[2021-10-24] MEDS ORDERED: acetaminophen 325mg tablet PO PRN ×2 (09:50)
[2021-10-24] MEDS ORDERED: metoclopramide 5 mg/ml inj IV PRN (09:50)
[2021-10-24] MEDS ORDERED: mineral oil 133ml enema RC PRN (09:50)
[2021-10-24] MEDS ORDERED: NORepinephrine 8mg/ 250ml NS 250 ML IV PRN (09:50)
[2021-10-24] MEDS ORDERED: Insulin Reg/NS 100units/100mL 100 ML IV SCH (09:50)
[2021-10-24] MEDS ORDERED: ondansetron/PF 4mg/2ml inj IV PRN (09:50)
[2021-10-24] MEDS ORDERED: dextrose 50%-water 50ml dispensing syringe IV PRN (09:50)
[2021-10-24] MEDS ORDERED: bisacodyl 10mg suppository rectal RC PRN (09:50)
[2021-10-24] MEDS ORDERED: albumin (Human) 5% 250ml 250 ML IV PRN (09:50)
[2021-10-24] MEDS ORDERED: niCARDipine-NS 40mg/200ml IVPB 200 ML IV PRN (09:50)
[2021-10-24] MEDS ORDERED: insulin glargine (Lantus) pen - multi-dose SQ PRN (09:50)
[2021-10-24] MEDS ORDERED: HYDROcodone/acetaminophen 10/325mg tab PO PRN (09:50)
[2021-10-24] MEDS ORDERED: Neutra Phos packet PO PRN (09:50)
[2021-10-24] MEDS ORDERED: potassium CL 10mEq/100ml bag 100 ML IV PRN (09:50)
[2021-10-24] MEDS: sodium chloride 0.45% 1,000 ML IV SCH (09:50)
[2021-10-24] MEDS ORDERED: sodium phosphate inj. 15 MMOL in dextrose 5%-water 250 ML IV PRN (09:50)
--- NOTE | 2021-10-24 10:15 | NUR ---
Received to room 2046, accompanied by MDs and surgical crew. Placed on ventilator, to personnel monitor, arterial line and PA line pressure monitored. Chest tubes to suction at 20 cm. Kathleen cath to gravity drainage. Dressings are dry and intact. See assessment record. All vasoactive drugs are infusing via central line.
--- NOTE | 2021-10-24 10:19 | NUR ---
Nutrition consult: Pt s/p AVR today, to provide high protein diet ed once pt more appropriate. Addendum: 10/24/21 at [address] Amended: Links added.
[2021-10-24 10:28] LABS: ABG BASE EXCESS -0.9 mmol/L (-2.0-2.0); ABG OXYGEN SATURATION 99.1 % (94-97); ABG PCO2 (T) 45.8 mmHg (32.0-45.0); ABG PO2 (T) 334.4 mmHg (75.0-100.0); FCOHb 0.2 % (0.0-3.9); FMetHb 0.5 % (0.0-1.5); FO2Hb 98.4 % (94-97); PATIENT TEMPERATURE 36.6; PEEP 5 cm H2O; RESPIRATORY RATE 12 b/min; TIDAL VOLUME 450 mL; TOTAL HEMOGLOBIN 10.9 G/dl (12.0-16.0)
[2021-10-24 10:43] LABS: BASOPHILS % (AUTO) 0.1 % (0-1); EOSINOPHILS # (AUTO) 0.2 X10'3 (0-0.9); EOSINOPHILS % (AUTO) 0.8 % (0-6); LYMPHOCYTES # (AUTO) 1.3 X10'3 (1.1-4.8); LYMPHOCYTES % (AUTO) 5.3 % (21-51); MEAN CORPUSCULAR HEMOGLOBIN 31.5 PG (27.0-31.0); MEAN CORPUSCULAR HGB CONC 34.6 g/dL (33.0-36.5); MEAN CORPUSCULAR VOLUME 91.1 FL (78-98); MEAN PLATELET VOLUME 7.7 FL (7.4-10.4); MONOCYTES # (AUTO) 1.1 X10'3 (0-0.9); MONOCYTES % (AUTO) 4.6 % (2-12); NEUTROPHILS # (AUTO) 21.2 X10'3 (1.8-7.7); NEUTROPHILS % (AUTO) 89.2 % (42-75); PLATELET COUNT 221 X10'3 (140-440); RED BLOOD COUNT 3.18 X10'6 (4.20-5.60); RED CELL DISTRIBUTION WIDTH 12.2 % (11.5-14.5); WHITE BLOOD COUNT 23.8 X10'3 (4.5-11.0)
[2021-10-24 10:50] LABS: APTT 28 SECONDS (22-32)
[2021-10-24 10:52] LABS: ALANINE AMINOTRANSFERASE 23 U/L (12-78); ALBUMIN 2.8 G/DL (3.4-5.0); ALKALINE PHOSPHATASE 77 IU/L (46-116); ANION GAP 6 (8-16); ASPARTATE AMINO TRANSFERASE 54 U/L (10-37); BILIRUBIN,TOTAL 0.3 MG/DL (0.1-1.0); BLOOD UREA NITROGEN 19 MG/DL (7-18); CALCIUM 8.7 MG/DL (8.5-10.1); CHLORIDE 107 MMOL/L (99-107); GLUCOSE 100 MG/DL (70-104); PHOSPHORUS 3.3 MG/DL (2.3-4.5); POTASSIUM 4.7 MMOL/L (3.5-5.1); SODIUM 140 MMOL/L (135-145); TOTAL CARBON DIOXIDE 26.7 MMOL/L (24-32); TOTAL PROTEIN 5.5 G/DL (6.4-8.2); eGFR 57 ML/MIN
[2021-10-24 10:54] LABS: MAGNESIUM 4.6 MG/DL (1.5-2.4)
--- NOTE | 2021-10-24 11:52 | NUR ---
Dr. Hamm rounding on the patient and aware of critical Magnesium level 4.6; okay with results, recheck this afternoon. Also, patient noted to be "allergic" to Acetaminophen and Hydrocodone in EMR; however, Dr. Hamm spoke with the patient who reports her only reaction is nausea and we will try her on the PRN Acetaminophen and Hydrocodone and change the order if she feels nauseous. Pacemaker also paused with Dr. Hamm and only intermittent ventricular conduction noted; will continue pacing.
[2021-10-24] MEDS: gabapentin 300mg capsule PO SCH ×2 (12:19→21:00)
[2021-10-24] MEDS: morphine 4 MG/ML inj SYRINge IV PRN ×2 (13:30→14:59)
[2021-10-24 15:28] LABS: ABG BASE EXCESS -3.4 mmol/L (-2.0-2.0); ABG HCO3 21.9 mmol/L (22.0-26.0); ABG OXYGEN SATURATION 97.8 % (94-97); ABG PCO2 (T) 40.9 mmHg (32.0-45.0); ABG PO2 (T) 121.2 mmHg (75.0-100.0); FCOHb 0.3 % (0.0-3.9); FMetHb 0.2 % (0.0-1.5); FO2Hb 97.3 % (94-97); PATIENT TEMPERATURE 37.4; PEEP 5 cm H2O; TOTAL HEMOGLOBIN 11.5 G/dl (12.0-16.0)
[2021-10-24 16:30] LABS: BASOPHILS # (AUTO) 0.1 X10'3 (0-0.2); BASOPHILS % (AUTO) 0.3 % (0-1); EOSINOPHILS % (AUTO) 0 % (0-6); HEMATOCRIT 30.9 % (35.0-45.0); HEMOGLOBIN 10.7 g/dl (12.0-16.0); LYMPHOCYTES # (AUTO) 0.4 X10'3 (1.1-4.8); LYMPHOCYTES % (AUTO) 1.3 % (21-51); MEAN CORPUSCULAR HEMOGLOBIN 31.6 PG (27.0-31.0); MEAN CORPUSCULAR HGB CONC 34.6 g/dL (33.0-36.5); MEAN CORPUSCULAR VOLUME 91.4 FL (78-98); MEAN PLATELET VOLUME 8.1 FL (7.4-10.4); MONOCYTES # (AUTO) 0.7 X10'3 (0-0.9); MONOCYTES % (AUTO) 2.3 % (2-12); NEUTROPHILS # (AUTO) 27.5 X10'3 (1.8-7.7); NEUTROPHILS % (AUTO) 96.1 % (42-75); PLATELET COUNT 241 X10'3 (140-440); RED BLOOD COUNT 3.38 X10'6 (4.20-5.60); RED CELL DISTRIBUTION WIDTH 12.5 % (11.5-14.5)
[2021-10-24] MEDS: ceFAZolin/D5W- 1GM premix 50 ML IV SCH (16:35)
[2021-10-24 16:39] LABS: WHITE BLOOD COUNT 28.6 X10'3 (4.5-11.0)
[2021-10-24 16:44] LABS: ALBUMIN 2.9 G/DL (3.4-5.0); ANION GAP 10 (8-16); BLOOD UREA NITROGEN 20 MG/DL (7-18); BUN/CREATININE RATIO 17.5 (6.6-38.0); CALCIUM 7.9 MG/DL (8.5-10.1); CHLORIDE 110 MMOL/L (99-107); CREATININE 1.14 MG/DL (0.40-0.90); GLUCOSE 142 MG/DL (70-104); MAGNESIUM 3.1 MG/DL (1.5-2.4); PHOSPHORUS 3.9 MG/DL (2.3-4.5); POTASSIUM 4.3 MMOL/L (3.5-5.1); SODIUM 143 MMOL/L (135-145); TOTAL CARBON DIOXIDE 23.5 MMOL/L (24-32); eGFR 49 ML/MIN
[2021-10-24 17:02] LABS: TOTAL CELLS COUNTED 100
[2021-10-24 17:03] LABS: HYPERSEGMENTED NEUTROPHILS 1+; PLATELET ESTIMATE NORMAL; SMUDGE CELLS FEW; TOXIC GRANULATION 1+
--- NOTE | 2021-10-24 17:09 | NUR ---
Critical WBC 28.6; Dr. Hamm notified. Will continue to monitor.
[2021-10-24] MEDS: potassium Cl 20mEq/100mL bag 100 ML IV PRN ×2 (17:21→19:11)
--- NOTE | 2021-10-24 18:21 | NUR ---
Problems reprioritized. Patient report given, questions answered & plan of care reviewed with Rick MALDONADO.
[2021-10-24] MEDS: HYDROcodone/acetaminophen 10/325mg tab PO PRN (18:47)
--- NOTE | 2021-10-24 19:00 | NUR ---
Patient in room ICU 2046. I have received report from Luc MALDONADO and had the opportunity to ask questions and assume patient care.
[2021-10-24] MEDS ORDERED: mupirocin 2% ointment 22GM NS SCH (20:00)
[2021-10-24] MEDS: sennosides/docusate sodium tablet PO SCH (20:00)
[2021-10-24 21:18] LABS: ABG HCO3 21.9 mmol/L (22.0-26.0); ABG PO2 (T) 85.2 mmHg (75.0-100.0); FCOHb 0.3 % (0.0-3.9); FLOW 2 L/min; FMetHb 0.4 % (0.0-1.5); FO2Hb 94.3 % (94-97); PATIENT TEMPERATURE 38.3; TOTAL HEMOGLOBIN 10.9 G/dl (12.0-16.0)
[2021-10-24] MEDS: acetaminophen 325mg tablet PO PRN (21:23)
[2021-10-24] MEDS: atorvastatin 10mg tablet PO SCH (21:23)
[2021-10-24] MEDS: vancomycin/NS 1 GM ADD-VANTAGE 250 ML IV SCH (22:40)
[2021-10-25] VITALS (24 sets, daily range): BP systolic 83–126; BP diastolic 47–67
[2021-10-25] MEDS: ALPRAZolam 0.5mg tablet PO PRN (00:26)
[2021-10-25] MEDS: ceFAZolin/D5W- 1GM premix 50 ML IV SCH ×3 (00:48→16:00)
[2021-10-25 02:47] LABS: BASOPHILS % (AUTO) 0 % (0-1); EOSINOPHILS % (AUTO) 0 % (0-6); HEMATOCRIT 25.5 % (35.0-45.0); HEMOGLOBIN 8.5 g/dl (12.0-16.0); LYMPHOCYTES # (AUTO) 0.5 X10'3 (1.1-4.8); LYMPHOCYTES % (AUTO) 3.2 % (21-51); MEAN CORPUSCULAR HEMOGLOBIN 30.6 PG (27.0-31.0); MEAN CORPUSCULAR HGB CONC 33.3 g/dL (33.0-36.5); MEAN PLATELET VOLUME 8.5 FL (7.4-10.4); MONOCYTES # (AUTO) 0.4 X10'3 (0-0.9); MONOCYTES % (AUTO) 2.6 % (2-12); NEUTROPHILS # (AUTO) 15.5 X10'3 (1.8-7.7); NEUTROPHILS % (AUTO) 94.2 % (42-75); PLATELET COUNT 118 X10'3 (140-440); RED BLOOD COUNT 2.77 X10'6 (4.20-5.60); RED CELL DISTRIBUTION WIDTH 12.7 % (11.5-14.5); WHITE BLOOD COUNT 16.5 X10'3 (4.5-11.0)
[2021-10-25 02:56] LABS: APTT 25 SECONDS (22-32)
[2021-10-25 03:01] LABS: ALANINE AMINOTRANSFERASE 23 U/L (12-78); ALBUMIN 2.7 G/DL (3.4-5.0); ALBUMIN/GLOBULIN RATIO 1.1 (1.1-1.5); ALKALINE PHOSPHATASE 74 IU/L (46-116); ANION GAP 6 (8-16); ASPARTATE AMINO TRANSFERASE 63 U/L (10-37); BILIRUBIN,TOTAL 0.3 MG/DL (0.1-1.0); BLOOD UREA NITROGEN 23 MG/DL (7-18); BUN/CREATININE RATIO 18.5 (6.6-38.0); CHLORIDE 106 MMOL/L (99-107); CREATININE 1.24 MG/DL (0.40-0.90); GLUCOSE 152 MG/DL (70-104); MAGNESIUM 2.5 MG/DL (1.5-2.4); PHOSPHORUS 4.2 MG/DL (2.3-4.5); POTASSIUM 5.1 MMOL/L (3.5-5.1); SODIUM 135 MMOL/L (135-145); TOTAL CARBON DIOXIDE 22.9 MMOL/L (24-32); TOTAL PROTEIN 5.2 G/DL (6.4-8.2); eGFR 44 ML/MIN
[2021-10-25] MEDS: metoprolol tartrate 12.5mg (1/2 tablet) PO SCH ×2 (08:00→20:00)
[2021-10-25] MEDS: aspirin 81mg, enteric-coated 1 TAB TABLET.DR PO SCH ×2 (08:00→08:55)
[2021-10-25] MEDS: mupirocin 2% nasal ointment 1gm UD NS SCH ×2 (08:00→20:00)
[2021-10-25] MEDS ORDERED: mineral oil/petrolatum ophthal oint EACHEYE SCH (08:00)
[2021-10-25] MEDS: K and/or MAG REPLACEMENT MC SCH ×2 (08:00→20:00)
[2021-10-25] MEDS: sennosides/docusate sodium tablet PO SCH ×2 (08:00→21:01)
[2021-10-25] MEDS: lactobacillus rhamnosus 10,000 MMU CELLS/CAPSULE PO SCH ×2 (08:55→20:00)
[2021-10-25] MEDS: gabapentin 300mg capsule PO SCH ×3 (08:56→21:01)
[2021-10-25] MEDS: aspirin 325mg tablet, delayed-release (Ecotrin) PO SCH (08:57)
[2021-10-25] MEDS: vancomycin/NS 1 GM ADD-VANTAGE 250 ML IV SCH ×2 (08:57→21:20)
--- NOTE | 2021-10-25 12:32 | NUR ---
Reassessment: Pt s/p AVR yesterday PO 100% heart healthy breakfast this AM and overall ~87% avg meals prior to OR meeting needs. Pt seen this AM by WHITNEY and reports quite drowsy currently mainly requests santi/elsa/mayra mi for lunch; dietary notified. Pt not appropriate for high protein ed at this time; would benefit from ed prior to discharge. LBM 10/21 receiving routine senna post-op though refused this AM per EMR. Will continue to monitor for further nutrition intervention needs post-op. Recs: 1. Liberalize to Regular diet; Lipid panel WNL, high HDL, serum Na 135 mmol/L on NS this AM 2. Monitor for ONS needs pending further PO trends post-op; Consider Bharat smoothies if ONS 3. routine bowel care 4. Weekly wts 5. High protein diet education by WHITNEY post-op once more appropriate Addendum: 10/25/21 at [address] Amended: Links added.
[2021-10-25] MEDS ORDERED: dextrose ORAL solution 15 GM/59 ML bottle PO PRN ×2 (12:55)
[2021-10-25] MEDS ORDERED: dextrose 50%-water 50ml dispensing syringe IV PRN ×2 (12:55)
[2021-10-25] MEDS ORDERED: glucagon, human recombinant 1mg kit SUBCUT PRN (12:55)
[2021-10-25] MEDS ORDERED: MESSAGE TO PHARMACY PO ONE (12:55)
[2021-10-25] MEDS: Insulin Reg/NS 100units/100mL 100 ML IV SCH (14:38)
[2021-10-25] MEDS: insulin Lispro (HumaLOG) vial - multi-dose SQ SCH (14:39)
[2021-10-25] MEDS: HYDROcodone/acetaminophen 10/325mg tab PO PRN ×2 (16:51→21:23)
[2021-10-25] MEDS: atorvastatin 10mg tablet PO SCH (21:01)
[2021-10-25] MEDS: insulin glargine (Lantus) pen - multi-dose SQ SCH (21:40)
[2021-10-26] VITALS (22 sets, daily range): BP systolic 93–124; BP diastolic 43–73
[2021-10-26] MEDS: ceFAZolin/D5W- 1GM premix 50 ML IV SCH (01:21)
[2021-10-26 02:38] LABS: BASOPHILS # (AUTO) 0.1 X10'3 (0-0.2); BASOPHILS % (AUTO) 0.3 % (0-1); EOSINOPHILS % (AUTO) 0 % (0-6); HEMATOCRIT 25.3 % (35.0-45.0); HEMOGLOBIN 8.4 g/dl (12.0-16.0); LYMPHOCYTES # (AUTO) 0.5 X10'3 (1.1-4.8); LYMPHOCYTES % (AUTO) 2.8 % (21-51); MEAN CORPUSCULAR HEMOGLOBIN 31.5 PG (27.0-31.0); MEAN CORPUSCULAR HGB CONC 33.4 g/dL (33.0-36.5); MEAN CORPUSCULAR VOLUME 94.3 FL (78-98); MEAN PLATELET VOLUME 9.4 FL (7.4-10.4); MONOCYTES # (AUTO) 0.9 X10'3 (0-0.9); MONOCYTES % (AUTO) 4.9 % (2-12); NEUTROPHILS # (AUTO) 17.5 X10'3 (1.8-7.7); PLATELET COUNT 138 X10'3 (140-440); RED BLOOD COUNT 2.68 X10'6 (4.20-5.60); RED CELL DISTRIBUTION WIDTH 12.5 % (11.5-14.5); WHITE BLOOD COUNT 19.1 X10'3 (4.5-11.0)
[2021-10-26 02:46] LABS: ALBUMIN 2.6 G/DL (3.4-5.0); ANION GAP 5 (8-16); BLOOD UREA NITROGEN 28 MG/DL (7-18); BUN/CREATININE RATIO 24.3 (6.6-38.0); CHLORIDE 105 MMOL/L (99-107); CREATININE 1.15 MG/DL (0.40-0.90); GLUCOSE 199 MG/DL (70-104); MAGNESIUM 2.1 MG/DL (1.5-2.4); PHOSPHORUS 3.1 MG/DL (2.3-4.5); POTASSIUM 4.9 MMOL/L (3.5-5.1); SODIUM 136 MMOL/L (135-145); eGFR 48 ML/MIN
--- NOTE | 2021-10-26 04:30 | NUR ---
Pt's H & H 7.2.6, Dr. Mo notified. New orders received to repeat CBC @ 12 noon. Addendum: 10/26/21 at 0601 by Odette Petersen RN, RN note entered at 0430 was entered on wrong patient.
[2021-10-26] MEDS: pantoprazole 40mg Tablet.DR PO SCH (07:30)
[2021-10-26] MEDS: mupirocin 2% nasal ointment 1gm UD NS SCH ×2 (08:00→19:36)
[2021-10-26] MEDS: metoprolol tartrate 12.5mg (1/2 tablet) PO SCH ×2 (08:00→19:34)
[2021-10-26] MEDS: aspirin 325mg tablet, delayed-release (Ecotrin) PO SCH (08:00)
[2021-10-26] MEDS: sennosides/docusate sodium tablet PO SCH ×2 (08:00→19:33)
[2021-10-26] MEDS: gabapentin 300mg capsule PO SCH (08:00)
[2021-10-26] MEDS: K and/or MAG REPLACEMENT MC SCH ×2 (08:00→19:21)
[2021-10-26] MEDS: lactobacillus rhamnosus 10,000 MMU CELLS/CAPSULE PO SCH ×2 (08:00→19:33)
[2021-10-26] MEDS ORDERED: furosemide 40mg/4ml inj IV ONE (09:00)
[2021-10-26] MEDS: HYDROcodone/acetaminophen 10/325mg tab PO PRN ×2 (09:17→20:18)
[2021-10-26] MEDS: insulin Lispro (HumaLOG) vial - multi-dose SQ SCH ×3 (09:30→20:17)
[2021-10-26] MEDS: sodium chloride 0.45% 1,000 ML IV SCH (09:50)
[2021-10-26] MEDS: heparin, porcine 5000 units/ml vial SQ SCH (16:53)
[2021-10-26] MEDS: atorvastatin 10mg tablet PO SCH (20:09)
[2021-10-26] MEDS: insulin glargine (Lantus) pen - multi-dose SQ SCH (20:18)
[2021-10-27] VITALS (22 sets, daily range): BP systolic 74–129; BP diastolic 44–84
[2021-10-27 04:05] LABS: ALBUMIN 2.3 G/DL (3.4-5.0); ANION GAP 4 (8-16); BASOPHILS % (AUTO) 0.1 % (0-1); BLOOD UREA NITROGEN 31 MG/DL (7-18); CALCIUM 7.8 MG/DL (8.5-10.1); CHLORIDE 105 MMOL/L (99-107); CREATININE 0.97 MG/DL (0.40-0.90); EOSINOPHILS % (AUTO) 0 % (0-6); GLUCOSE 113 MG/DL (70-104); HEMATOCRIT 22.3 % (35.0-45.0); HEMOGLOBIN 7.6 g/dl (12.0-16.0); LYMPHOCYTES # (AUTO) 1.2 X10'3 (1.1-4.8); LYMPHOCYTES % (AUTO) 11.4 % (21-51); MAGNESIUM 1.9 MG/DL (1.5-2.4); MEAN CORPUSCULAR HEMOGLOBIN 31.8 PG (27.0-31.0); MEAN CORPUSCULAR HGB CONC 34.2 g/dL (33.0-36.5); MEAN CORPUSCULAR VOLUME 92.9 FL (78-98); MEAN PLATELET VOLUME 9.2 FL (7.4-10.4); MONOCYTES # (AUTO) 0.7 X10'3 (0-0.9); MONOCYTES % (AUTO) 7.3 % (2-12); NEUTROPHILS # (AUTO) 8.2 X10'3 (1.8-7.7); NEUTROPHILS % (AUTO) 81.2 % (42-75); PHOSPHORUS 2.7 MG/DL (2.3-4.5); PLATELET COUNT 132 X10'3 (140-440); POTASSIUM 4.2 MMOL/L (3.5-5.1); RED CELL DISTRIBUTION WIDTH 12.9 % (11.5-14.5); SODIUM 138 MMOL/L (135-145); TOTAL CARBON DIOXIDE 28.7 MMOL/L (24-32); WHITE BLOOD COUNT 10.2 X10'3 (4.5-11.0); eGFR 59 ML/MIN
[2021-10-27] MEDS: HYDROcodone/acetaminophen 10/325mg tab PO PRN ×2 (04:05→23:06)
[2021-10-27] MEDS: mupirocin 2% nasal ointment 1gm UD NS SCH ×2 (08:00→18:29)
[2021-10-27] MEDS: K and/or MAG REPLACEMENT MC SCH ×2 (08:00→19:03)
[2021-10-27] MEDS: metoprolol tartrate 12.5mg (1/2 tablet) PO SCH ×2 (08:00→19:02)
[2021-10-27] MEDS: insulin Lispro (HumaLOG) vial - multi-dose SQ SCH ×3 (08:30→19:08)
[2021-10-27] MEDS: sennosides/docusate sodium tablet PO SCH ×2 (08:35→19:01)
[2021-10-27] MEDS: pantoprazole 40mg Tablet.DR PO SCH (08:35)
[2021-10-27] MEDS: aspirin 325mg tablet, delayed-release (Ecotrin) PO SCH (08:35)
[2021-10-27] MEDS: lactobacillus rhamnosus 10,000 MMU CELLS/CAPSULE PO SCH ×2 (08:35→19:02)
[2021-10-27] MEDS: heparin, porcine 5000 units/ml vial SQ SCH ×4 (08:36→23:06)
[2021-10-27] MEDS: temazepam 15mg capsule PO PRN (19:01)
[2021-10-27] MEDS: atorvastatin 10mg tablet PO SCH (20:03)
[2021-10-27] MEDS: insulin glargine (Lantus) pen - multi-dose SQ SCH (21:00)
[2021-10-28] VITALS (22 sets, daily range): BP systolic 87–121; BP diastolic 31–78
[2021-10-28 02:54] LABS: BASOPHILS % (AUTO) 0.1 % (0-1); EOSINOPHILS % (AUTO) 0.2 % (0-6); HEMATOCRIT 22.8 % (35.0-45.0); HEMOGLOBIN 7.9 g/dl (12.0-16.0); LYMPHOCYTES # (AUTO) 1.5 X10'3 (1.1-4.8); LYMPHOCYTES % (AUTO) 18.7 % (21-51); MEAN CORPUSCULAR HGB CONC 34.5 g/dL (33.0-36.5); MEAN CORPUSCULAR VOLUME 92.7 FL (78-98); MONOCYTES # (AUTO) 0.7 X10'3 (0-0.9); MONOCYTES % (AUTO) 8.3 % (2-12); NEUTROPHILS # (AUTO) 5.9 X10'3 (1.8-7.7); NEUTROPHILS % (AUTO) 72.7 % (42-75); PLATELET COUNT 158 X10'3 (140-440); RED BLOOD COUNT 2.46 X10'6 (4.20-5.60); RED CELL DISTRIBUTION WIDTH 12.5 % (11.5-14.5); WHITE BLOOD COUNT 8.1 X10'3 (4.5-11.0)
[2021-10-28 03:23] LABS: ALBUMIN 2.4 G/DL (3.4-5.0); ANION GAP 3 (8-16); BLOOD UREA NITROGEN 24 MG/DL (7-18); BUN/CREATININE RATIO 26.7 (6.6-38.0); CALCIUM 7.9 MG/DL (8.5-10.1); CHLORIDE 105 MMOL/L (99-107); GLUCOSE 75 MG/DL (70-104); PHOSPHORUS 3.1 MG/DL (2.3-4.5); POTASSIUM 4.4 MMOL/L (3.5-5.1); SODIUM 137 MMOL/L (135-145); TOTAL CARBON DIOXIDE 29.1 MMOL/L (24-32); eGFR 64 ML/MIN
[2021-10-28] MEDS: morphine 4 MG/ML inj SYRINge IV PRN ×2 (05:38→06:55)
--- NOTE | 2021-10-28 06:26 | NUR ---
report given to JOEL Dunham.
[2021-10-28 07:06] LABS: ACT @ 1.70 U 313 SEC (193-297); ACT @ 2.84 U 440 SEC (260-420); BASELINE ACT 160 SEC (101-148); PATIENT WEIGHT 67.0k KG
[2021-10-28] MEDS: mupirocin 2% nasal ointment 1gm UD NS SCH ×2 (07:19→20:00)
[2021-10-28] MEDS: K and/or MAG REPLACEMENT MC SCH (07:19)
[2021-10-28] MEDS: sennosides/docusate sodium tablet PO SCH ×2 (08:00→20:00)
[2021-10-28] MEDS: pantoprazole 40mg Tablet.DR PO SCH (08:02)
[2021-10-28] MEDS: aspirin 325mg tablet, delayed-release (Ecotrin) PO SCH (08:02)
[2021-10-28] MEDS: lactobacillus rhamnosus 10,000 MMU CELLS/CAPSULE PO SCH ×2 (08:02→20:03)
[2021-10-28] MEDS: heparin, porcine 5000 units/ml vial SQ SCH ×2 (08:03→16:00)
[2021-10-28] MEDS: sodium chloride 0.45% 1,000 ML IV SCH (10:26)
[2021-10-28] MEDS ORDERED: magnesium 4gm in 100ml NS 100 ML IV PRN (10:30)
[2021-10-28] MEDS ORDERED: potassium CL 10mEq/100ml bag 100 ML IV PRN (10:30)
[2021-10-28] MEDS ORDERED: potassium Cl 40MEQ/1/2NS 520ml 520 ML IV PRN (10:30)
[2021-10-28] MEDS ORDERED: magnesium 2GM in 50ml NS 50 ML IV PRN (10:30)
[2021-10-28] MEDS ORDERED: potassium Cl 20mEq/100mL bag 100 ML IV PRN (10:30)
[2021-10-28] MEDS ORDERED: potassium Cl 40MEQ/250ML bag 250 ML IV PRN (10:30)
[2021-10-28] MEDS ORDERED: potassium Cl 20 mEq SR tablet PO PRN (10:30)
[2021-10-28] MEDS ORDERED: HYDR-3972 PO (10:47)
[2021-10-28 11:07] LABS: GLUCOSE (ABG) < 30 mg/dl (70-105)
[2021-10-28] MEDS: HYDROcodone/acetaminophen 10/325mg tab PO PRN ×2 (11:14→20:03)
--- NOTE | 2021-10-28 11:23 | NUR ---
Nutrition consult: Pt s/p AVR this admit, still very drowsy upon assessment this morning and did not care for education at that time. Will try again at later date. Addendum: 10/28/21 at [address] Amended: Links added.
[2021-10-28] MEDS: potassium Cl 20 mEq SR tablet PO SCH (20:00)
[2021-10-28] MEDS: magnesium Cl slow-release 64mg tablet PO SCH (20:03)
[2021-10-28] MEDS: atorvastatin 10mg tablet PO SCH (20:03)
[2021-10-28] MEDS: insulin glargine (Lantus) pen - multi-dose SQ SCH (20:26)
--- NOTE | 2021-10-28 22:45 | NUR ---
Received pt from Critical care, alert and oriented. BP= 116/79, O2 = 92 and HR = 88. I have received report from Deanna MALDONADO.
--- NOTE | 2021-10-28 23:07 | NUR ---
Transferred pt to PCU room 311 and gave report to JOEL Figueroa.
[2021-10-29] MEDS: heparin, porcine 5000 units/ml vial SQ SCH ×3 (00:35→15:54)
[2021-10-29 02:00] VITALS: BP 110/72
[2021-10-29] MEDS: HYDROcodone/acetaminophen 10/325mg tab PO PRN ×4 (04:43→20:06)
[2021-10-29 06:00] VITALS: BP 77/40
--- NOTE | 2021-10-29 06:13 | NUR ---
Problems reprioritized. Patient report given, questions answered & plan of care reviewed with Masood MALDONADO.
[2021-10-29 07:23] LABS: BASOPHILS % (AUTO) 0.1 % (0-1); EOSINOPHILS # (AUTO) 0.2 X10'3 (0-0.9); EOSINOPHILS % (AUTO) 2.7 % (0-6); HEMATOCRIT 27.2 % (35.0-45.0); HEMOGLOBIN 9.4 g/dl (12.0-16.0); LYMPHOCYTES # (AUTO) 1.8 X10'3 (1.1-4.8); LYMPHOCYTES % (AUTO) 21.3 % (21-51); MEAN CORPUSCULAR HEMOGLOBIN 32.2 PG (27.0-31.0); MEAN CORPUSCULAR HGB CONC 34.7 g/dL (33.0-36.5); MEAN CORPUSCULAR VOLUME 92.6 FL (78-98); MEAN PLATELET VOLUME 8.8 FL (7.4-10.4); MONOCYTES # (AUTO) 0.8 X10'3 (0-0.9); MONOCYTES % (AUTO) 9.5 % (2-12); NEUTROPHILS # (AUTO) 5.6 X10'3 (1.8-7.7); NEUTROPHILS % (AUTO) 66.4 % (42-75); PLATELET COUNT 257 X10'3 (140-440); RED BLOOD COUNT 2.94 X10'6 (4.20-5.60); RED CELL DISTRIBUTION WIDTH 12.7 % (11.5-14.5); WHITE BLOOD COUNT 8.4 X10'3 (4.5-11.0)
[2021-10-29 07:46] LABS: ALBUMIN 2.5 G/DL (3.4-5.0); ANION GAP 6 (8-16); BLOOD UREA NITROGEN 18 MG/DL (7-18); BUN/CREATININE RATIO 18.2 (6.6-38.0); CALCIUM 8.2 MG/DL (8.5-10.1); CHLORIDE 103 MMOL/L (99-107); CREATININE 0.99 MG/DL (0.40-0.90); GLUCOSE 90 MG/DL (70-104); SODIUM 138 MMOL/L (135-145); TOTAL CARBON DIOXIDE 29.3 MMOL/L (24-32); eGFR 57 ML/MIN
[2021-10-29] MEDS: lactobacillus rhamnosus 10,000 MMU CELLS/CAPSULE PO SCH ×2 (08:13→20:05)
[2021-10-29] MEDS: aspirin 325mg tablet, delayed-release (Ecotrin) PO SCH (08:13)
[2021-10-29] MEDS: magnesium Cl slow-release 64mg tablet PO SCH ×2 (08:13→20:05)
[2021-10-29] MEDS: potassium Cl 20 mEq SR tablet PO SCH ×2 (08:13→20:05)
[2021-10-29] MEDS: pantoprazole 40mg Tablet.DR PO SCH (08:13)
[2021-10-29] MEDS: mupirocin 2% nasal ointment 1gm UD NS SCH ×2 (08:14→18:58)
[2021-10-29] MEDS: sennosides/docusate sodium tablet PO SCH ×2 (08:14→20:06)
--- NOTE | 2021-10-29 10:48 | NUR ---
PER RECORDS MANAGEMENT MANAGER NELIDA STOP CC DIET AND START REG DIET
[2021-10-29 11:00] VITALS: BP 139/81
--- NOTE | 2021-10-29 11:28 | NUR ---
Reassessment: Noted diet has been changed to Carb Controlled on 10/26 though A1C 5.3, d/w RN recommendation for Regular diet given lipid panel WNL as well. Pt has mostly 100% intake of meals though did refuse 2 meals on 10/28. Overall likely meeting minimum est nutrient needs. LBM 10/28 receiving routine senna. Pt was very agitated at time of assessment, written high protein diet ed w/ RD contact info placed in pt chart. Will continue to monitor Recs: 1. Liberalize to Regular diet; Lipid panel WNL, high HDL, A1C 5.3 2. Monitor for ONS needs pending further PO trends post-op; Consider Bharat smoothies if ONS 3. routine bowel care 4. Weekly wts Addendum: 10/29/21 at [address] Amended: Links added.
[2021-10-29 15:00] VITALS: BP 111/70
[2021-10-29 18:00] VITALS: BP 114/69
[2021-10-29] MEDS: metoprolol tartrate 12.5mg (1/2 tablet) PO SCH (20:05)
[2021-10-29] MEDS: atorvastatin 10mg tablet PO SCH (20:05)
[2021-10-29] MEDS: insulin glargine (Lantus) pen - multi-dose SQ SCH (20:12)
[2021-10-29 22:00] VITALS: BP 110/58
[2021-10-30] MEDS: heparin, porcine 5000 units/ml vial SQ SCH ×2 (00:06→07:47)
[2021-10-30] MEDS: ALPRAZolam 0.5mg tablet PO PRN (00:30)
[2021-10-30] MEDS: HYDROcodone/acetaminophen 10/325mg tab PO PRN ×2 (00:31→07:50)
[2021-10-30 02:00] VITALS: BP 103/58
[2021-10-30 06:00] VITALS: BP 121/83
[2021-10-30 07:04] LABS: BASOPHILS % (AUTO) 0.4 % (0-1); EOSINOPHILS # (AUTO) 0.3 X10'3 (0-0.9); EOSINOPHILS % (AUTO) 4.3 % (0-6); HEMOGLOBIN 10.3 g/dl (12.0-16.0); LYMPHOCYTES # (AUTO) 1.6 X10'3 (1.1-4.8); MEAN CORPUSCULAR HEMOGLOBIN 32.3 PG (27.0-31.0); MEAN CORPUSCULAR HGB CONC 34.3 g/dL (33.0-36.5); MEAN CORPUSCULAR VOLUME 94.2 FL (78-98); MEAN PLATELET VOLUME 8.2 FL (7.4-10.4); MONOCYTES # (AUTO) 0.9 X10'3 (0-0.9); MONOCYTES % (AUTO) 11.8 % (2-12); NEUTROPHILS # (AUTO) 5.1 X10'3 (1.8-7.7); NEUTROPHILS % (AUTO) 63.5 % (42-75); PLATELET COUNT 260 X10'3 (140-440); RED BLOOD COUNT 3.18 X10'6 (4.20-5.60); RED CELL DISTRIBUTION WIDTH 12.7 % (11.5-14.5)
[2021-10-30 07:40] LABS: ALBUMIN 2.6 G/DL (3.4-5.0); ANION GAP 7 (8-16); BLOOD UREA NITROGEN 17 MG/DL (7-18); CALCIUM 8.4 MG/DL (8.5-10.1); CHLORIDE 103 MMOL/L (99-107); CREATININE 0.85 MG/DL (0.40-0.90); GLUCOSE 108 MG/DL (70-104); POTASSIUM 5.2 MMOL/L (3.5-5.1); SODIUM 137 MMOL/L (135-145); TOTAL CARBON DIOXIDE 27.4 MMOL/L (24-32); eGFR 68 ML/MIN
[2021-10-30] MEDS: magnesium Cl slow-release 64mg tablet PO SCH (07:44)
[2021-10-30] MEDS: sennosides/docusate sodium tablet PO SCH (07:44)
[2021-10-30] MEDS: aspirin 325mg tablet, delayed-release (Ecotrin) PO SCH (07:44)
[2021-10-30 07:45] VITALS: BP_SYST 121
[2021-10-30] MEDS: metoprolol tartrate 12.5mg (1/2 tablet) PO SCH (07:45)
[2021-10-30] MEDS: lactobacillus rhamnosus 10,000 MMU CELLS/CAPSULE PO SCH (07:45)
[2021-10-30] MEDS: pantoprazole 40mg Tablet.DR PO SCH (07:45)
[2021-10-30] MEDS: mupirocin 2% nasal ointment 1gm UD NS SCH (07:46)
[2021-10-30] MEDS: potassium Cl 20 mEq SR tablet PO SCH (07:50)
[2021-10-30] MEDS ORDERED: LOP12.5T PO (08:24)
[2021-10-30] MEDS ORDERED: ATOR10TA PO (08:24)
[2021-10-30] MEDS ORDERED: ASPI-1071 PO (08:24)
--- NOTE | 2021-10-30 11:18 | NUR ---
Patient discharge home alert and orient. discharge instruction discussed. patient was transport home by the family car.
== END 2021-10-30 12:47 | disposition home or self-care (01) | DRG 163 ==
LOC: ER 09:04 → ED HOLD 11:53 → PCU 3S 21:31 → ICU 2S 10-24 10:15 → PCU 3S 10-28 22:39
PROVIDERS: ADMIT Internal Medicine; ATTEND Internal Medicine
PROC: B32T1ZZ Computerized Tomography (CT Scan) of Left Pulmonary Artery using Low Osmolar Contrast (ICD-10-PCS; 2021-10-16)
PROC: B3201ZZ Computerized Tomography (CT Scan) of Thoracic Aorta using Low Osmolar Contrast (ICD-10-PCS; 2021-10-16)
PROC: B32S1ZZ Computerized Tomography (CT Scan) of Right Pulmonary Artery using Low Osmolar Contrast (ICD-10-PCS; 2021-10-16)
PROC: 4A02XM4 Measurement of Cardiac Total Activity, External Approach (ICD-10-PCS; 2021-10-17)
PROC: 3E073KZ Introduction of Other Diagnostic Substance into Coronary Artery, Percutaneous Approach (ICD-10-PCS; 2021-10-17)
PROC: 5A1221Z Performance of Cardiac Output, Continuous (ICD-10-PCS; 2021-10-24)
PROC: B24BZZ4 Ultrasonography of Heart with Aorta, Transesophageal (ICD-10-PCS; 2021-10-24)
PROC: 0BJ08ZZ Inspection of Tracheobronchial Tree, Via Natural or Artificial Opening Endoscopic (ICD-10-PCS; 2021-10-24)
PROC: 027 Heart and Great Vessels, Dilation (ICD-10-PCS; 2021-10-24)
PROC: 02RF08Z Replacement of Aortic Valve with Zooplastic Tissue, Open Approach (ICD-10-PCS; principal; 2021-10-24 07:00)
DX: I35.0 Nonrheumatic aortic (valve) stenosis (principal); I50.9 Heart failure, unspecified; I95.9 Hypotension, unspecified; I25.110 Atherosclerotic heart disease of native coronary artery with unstable angina pectoris; J44.9 Chronic obstructive pulmonary disease, unspecified; D62 Acute posthemorrhagic anemia; Z20.822 Contact with and (suspected) exposure to COVID-19; R59.0 Localized enlarged lymph nodes; I44.1 Atrioventricular block, second degree; I45.10 Unspecified right bundle-branch block; Z90.710 Acquired absence of both cervix and uterus; Z88.5 Allergy status to narcotic agent; R00.1 Bradycardia, unspecified; R00.0 Tachycardia, unspecified
CPT/HCPCS: 36415; 36600; 71045; 71046; 71275; 78452; 80048; 80053; 80061; 82330; 82435; 82803; 82947; 82948; 83036; 83735; 83880; 84100; 84132; 84145; 84295; 84443; 84484; 85007; 85018; 85025; 85347; 85384; 85610; 85730; 86885; 86900; 86901; 86920; 87081; 87635; 93005; 93017; 93306; 93312; 93325; 93880; 94002; 94010; 94760; 97110; 97116; 97161; 97530; 99285; A4618; A6258; A6449; A7000; A7048; A9500; C1751; C9803; G0378; J0171; J0280; J0690; J0696; J1100; J1644; J1815; J1940; J2060; J2150; J2250; J2270; J2370; J2405; J2704; J2785; J2930; J3010; J3370; J3475; J3480; J3490; J7030; J7040; J7050; J7120; P9047; Q9967

== ENCOUNTER 2021-11-07 12:39 | Emergency (ER) | payer MEDICAID ==
[~2021-11-07] VITALS: Ht 162.6 cm; Wt 68.2 kg
[~2021-11-07 12:39] MED LIST changes: -ALBU8HFA PO; +ASPI-1071 PO; +ATOR10TA PO; +HYDR-3972 PO; -LIDOcaine 2% (20 mg/ml) 5ml cardiac syringe ONE; +LOP12.5T PO; -MAGNESIUM SULFATE 4 MEQ/ML (5gm/10ml) injection ONE; -NO HOME MEDS; -NORepinephrine 1 mg/ml inj IV ONE; -albumin (human) 25% 100 ML IV solution IV ONE; -aminocaproic acid 250 MG/1 ML inj. ONE; -calcium chloride 100 MG/1 ML inj IV ONE; -heparin 1,000 units/ml 10ml inj ONE; -isoflurane 100ml inhalation liquid IH ONE; -methylPREDNISolone sod succ 1000mg vial ONE; -phenylephrine 10mg/ml inj. ONE; -potassium Cl 2 mEq/ml inj IV ONE; -sodium bicarbonate (8.4%) 1 mEq/ml syringe ONE
[2021-11-07 12:41] VITALS: BP 139/85
[2021-11-07] MEDS ORDERED: traMADol 50MG tablet PO ONE (16:25)
== END 2021-11-07 17:14 | disposition home or self-care (01) ==
LOC: ER 12:39
DX: R07.89 Other chest pain (principal); R10.13 Epigastric pain; I50.9 Heart failure, unspecified; Z90.710 Acquired absence of both cervix and uterus; Z79.82 Long term (current) use of aspirin; Z79.899 Other long term (current) drug therapy
CPT/HCPCS: 36415; 84484; 93005; 99284

== ENCOUNTER 2023-07-05 21:43 | Emergency (ER) | payer BC, MEDICAID ==
[~2023-07-05] VITALS: Ht 162.6 cm; Wt 58.0 kg
[2023-07-05] MEDS ORDERED: proMETHazine DM oral syrup 5ml UD PO ONE ×2 (23:30→23:40)
[2023-07-05] MEDS ORDERED: ondansetron/PF 4mg/2ml inj IV ONE (23:30)
[2023-07-05] MEDS ORDERED: pantoprazole 40 MG vial IV ONE (23:30)
[2023-07-05] MEDS ORDERED: aspirin 81mg tab.chew PO ONE (23:30)
[2023-07-05] MEDS ORDERED: pantoprazole 40MG/NS 100ML BAG 100 ML IV ONE (23:45)
[2023-07-05 23:54] LABS: ABG BASE EXCESS -1.1 mmol/L (-2.0-2.0); ABG HCO3 23.1 mmol/L (22.0-26.0); ABG OXYGEN SATURATION 97.1 % (94-97); ABG PCO2 (T) 36.8 mmHg (32.0-45.0); ABG PH (T) 7.415 (7.350-7.450); ALLEN'S TEST POSITIVE; FCOHb 0.2 % (0.0-3.9); FHHb 2.9 % (0.0-5.0); FMetHb 0.2 % (0.0-1.5); FO2Hb 96.7 % (94-97); MODE ROOM AIR; TOTAL HEMOGLOBIN 13.7 G/dl (12.0-16.0)
[2023-07-06 00:22] LABS: HEMATOCRIT 38.8 % (35.0-45.0); HEMOGLOBIN 13.3 g/dl (12.0-16.0); PLATELET COUNT 146 X10'3 (140-440)
[2023-07-06 00:23] LABS: BASOPHILS % (AUTO) 0.4 % (0-1); EOSINOPHILS # (AUTO) 0.4 X10'3 (0-0.9); EOSINOPHILS % (AUTO) 6.9 % (0-6); LYMPHOCYTES # (AUTO) 1.4 X10'3 (1.1-4.8); LYMPHOCYTES % (AUTO) 25.7 % (21-51); MEAN CORPUSCULAR HEMOGLOBIN 31.6 PG (27.0-31.0); MEAN CORPUSCULAR HGB CONC 34.4 g/dL (33.0-36.5); MEAN CORPUSCULAR VOLUME 91.9 FL (78-98); MEAN PLATELET VOLUME 8.3 FL (7.4-10.4); MONOCYTES # (AUTO) 0.6 X10'3 (0-0.9); MONOCYTES % (AUTO) 10.8 % (2-12); NEUTROPHILS % (AUTO) 56.2 % (42-75); RED BLOOD COUNT 4.22 X10'6 (4.20-5.60); RED CELL DISTRIBUTION WIDTH 13.1 % (11.5-14.5); WHITE BLOOD COUNT 5.3 X10'3 (4.5-11.0)
[2023-07-06 00:29] LABS: ALANINE AMINOTRANSFERASE 31 U/L (12-78); ALBUMIN 3.3 G/DL (3.4-5.0); ALBUMIN/GLOBULIN RATIO 0.9 (1.1-1.5); ALKALINE PHOSPHATASE 153 IU/L (46-116); ANION GAP 8 (8-16); ASPARTATE AMINO TRANSFERASE 37 U/L (10-37); BILIRUBIN,TOTAL 0.3 MG/DL (0.1-1.0); BLOOD UREA NITROGEN 14 MG/DL (7-18); BUN/CREATININE RATIO 13.7 (10.0-20.0); CALCIUM 8.9 MG/DL (8.5-10.1); CHLORIDE 107 MMOL/L (99-107); CREATININE 1.02 MG/DL (0.40-0.90); GLUCOSE 96 MG/DL (70-104); POTASSIUM 3.6 MMOL/L (3.5-5.1); SODIUM 140 MMOL/L (135-145); TOTAL CARBON DIOXIDE 24.8 MMOL/L (24-32); TOTAL PROTEIN 6.8 G/DL (6.4-8.2); eCRCL 49 ML/MIN; eGFR 55 ML/MIN
[2023-07-06 00:36] LABS: C-REACTIVE PROTEIN 0.72 MG/DL (0.0-0.5); MAGNESIUM 1.8 MG/DL (1.5-2.4); PHOSPHORUS 3.7 MG/DL (2.3-4.5); PRO BRAIN NATRIURETIC PEPTIDE 388 PG/ML (0-125)
[2023-07-06 00:41] LABS: APTT 25 SECONDS (22-32); PROTHROMBIN TIME 10.9 SECONDS (9.0-12.0)
[2023-07-06 01:23] VITALS: TEMP 98.2
[2023-07-06] MEDS ORDERED: AZIT-164 PO (05:55)
[2023-07-06 06:11] VITALS: BP 130/70; PULSE 55; RESP 14; O2SAT 96
== END 2023-07-06 06:13 | disposition home or self-care (01) ==
LOC: ER 21:44
DX: J20.9 Acute bronchitis, unspecified (principal); Z20.822 Contact with and (suspected) exposure to COVID-19
CPT/HCPCS: 36415; 36600; 71045; 80053; 82803; 83605; 83735; 83880; 84100; 84145; 84484; 85018; 85025; 85610; 85730; 86140; 87040; 87077; 87186; 87502; 87503; 87811; 93005; 96374; 96375; 99285; C9113; J2405

== ENCOUNTER 2025-05-14 22:05 | Emergency (ER) | payer BC, MEDICAID ==
[~2025-05-14] VITALS: Ht 162.6 cm; Wt 65.2 kg
--- NOTE | 2025-05-14 23:24 | RADIOLOGY REPORT ---
CLINICAL INDICATION: LEFT FOOT PAIN TECHNIQUE: DI FOOT, COMPLETE (3VW MIN) Comparison: None FINDINGS/IMPRESSION: : There is no evidence of acute fracture or dislocation. Mild subcutaneous edema of the dorsum of the left foot Note is made of an os peroneum.
--- NOTE | 2025-05-15 00:21 | Physician Documentation ---
History of Present Illness ~ Chief Complaint: Foot pain Stated Complaint: FOOT PAIN Time Seen by MD: 23:31 Primary Medical Doctor: [facility] HPI Patient is a 64-year-old female that reports to the emergency department for evaluation of left foot edema x1 month. Patient reports that her foot has been swollen to the dorsal aspect and lateral aspect for approximately a month with worsening during that time. Patient denies any trauma to the foot and is unaware of any injury. Reports that she went out dancing her foot bothered her the entire time and she experience shortness of breath with any exertion. Patient reports that she had open-heart surgery in 2019. Denies any other significant past medical history at this time. Tetanus witin 5 years: No (UNSURE) Medication Reconciliation Allergies: Coded Allergies: No Known Drug Allergies (Verified Allergy, Unknown, 10/16/21) Scheduled Aspirin (Ecotrin*), 1 TAB PO Q24H Atorvastatin Calcium (Lipitor), 10 MG PO HS Metoprolol Tartrate (Lopressor tablet), 12.5 MG PO BID Scheduled PRN Hydrocodone Bit/Acetaminophen (Hydrocodon-Acetaminophn 10-325 tablet), 1 TAB PO Q6H PRN for MODERATE PAIN 4-6 Past Medical History Past Medical History: Congestive Heart Failure, Heart Valve Disease Past Surgical History: hysterectomy Other Past Surgical History: Arctic valve replacement, septal myomectomy Patient History: Patient reports no known family medical history. Other Past Family History: NONCONTRIBUTORY Alcohol Use: None Drug Use: none Lives with: Family Lives In: Home Review of Systems ROS As stated above in the HPI, otherwise all systems are reviewed and negative. Physical Exam Vital Signs: Temperature: 97.9, Heart Rate: 87, Respiratory Rate: 16, BP: 154/78, Pulse Oximetry: 98, Weight: 65.210 Oxygen Flow Rate: 0 Physical Exam VITALS: Reviewed and as above. GENERAL: Alert, no apparent distress. HEENT: Normocephalic, atraumatic, PERRL, EOMI, dry mucosa, no erythema RESPIRATORY: Lungs clear, normal breath sounds, no respiratory distress. CHEST: No accessory muscle use, no retractions CV: Regular rate, rhythm, no edema, no murmur, No: JVD GI: Soft, non-tender, bowels sounds present, no rebound, guarding, or rigidity BACK: No CVA tenderness, or swelling MUSCULOSKELETAL No deformities, edema to the left lower extremity, reduced ROM. SKIN: Warm and dry, no rash, edema to the dorsal and lateral aspect of the left foot. NEURO: Oriented x4, No motor or sensory deficit PSYCH: Normal mood and affect, no agitation Progress Results/Orders Results/Orders Orders - MAURA RAWLS MD Foot, Complete (3vw Min) (05/14/25 22:33) Completed Orders - MAURA RAWLS MD Foot, Complete (3vw Min) (05/14/25 22:33) Vital Signs 05/14/25 05/15/25 22:28 01:31 Temp 97.9 Pulse 87 79 Resp 16 19 B/P (MAP) 154/78 133/72 (92) Pulse Ox 98 100 O2 Flow Rate 0 Laboratory Tests Test 05/15/25 00:16 White Blood Count 9.9 Red Blood Count 4.05 L Hemoglobin 12.1 Hematocrit 36.0 Mean Corpuscular Volume 89.0 Mean Corpuscular Hemoglobin 29.8 Mean Corpuscular Hemoglobin Concent 33.4 Red Cell Distribution Width 13.4 Platelet Count 244 Mean Platelet Volume 7.5 Neutrophils (%) (Auto) 80.3 H Lymphocytes (%) (Auto) 10.8 L Monocytes (%) (Auto) 7.6 Eosinophils (%) (Auto) 1.0 Basophils (%) (Auto) 0.3 Neutrophils # (Auto) 8.0 H Lymphocytes # (Auto) 1.1 Monocytes # (Auto) 0.8 Eosinophils # (Auto) 0.1 Basophils # (Auto) 0.0 CBC Comment Sodium Level 136 Potassium Level 4.2 Chloride Level 103 Carbon Dioxide Level 23.3 L Anion Gap 10 Blood Urea Nitrogen 12 Creatinine 1.14 H Estimated GFR/1.73 m2 48 BUN/Creatinine Ratio 10.5 Glucose Level 96 Calcium Level 9.0 Total Bilirubin 0.3 Aspartate Amino Transf (AST/SGOT) 22 Alanine Aminotransferase (ALT/SGPT) 8 L Alkaline Phosphatase 142 H Pro-B-Type Natriuretic Peptide 1997 H Total Protein 7.9 Albumin 3.1 L Globulin 4.8 H Albumin/Globulin Ratio 0.6 L Chemistry Comments Medical Decision Making Findings Signed out to me by LUCERO Siegel. Imaging studies and blood tests nonspecific for any etiology for swelling. Counseled, reassured, discharged to follow up with PCP. Additional Comment Ddx = DVT, kidney failure, CHF, chronic venous stasis dermatitis Departure Disposition: HOME / SELF CARE / HOMELESS Impression: Primary Impression: Edema Condition: Stable Discharge Instructions: Edema Referrals: NO PRIMARY CARE PROVIDER (PCP) Education Educated: Patient Educated regarding: diagnosis, treatment, prognosis, need for follow up Signature Scribe Signature: . Attestation: . ROBBIE SIEGEL May 15, 2025 00:21 MAURA RAWLS MD May 15, 2025 02:07
[2025-05-15 00:38] LABS: MEAN PLATELET VOLUME 7.5 FL (7.4-10.4); RED CELL DISTRIBUTION WIDTH 13.4 % (11.5-14.5)
[2025-05-15 00:53] LABS: CREATININE 1.14 MG/DL (0.40-0.90); TOTAL CARBON DIOXIDE 23.3 MMOL/L (24-32); eCRCL 44 ML/MIN; eGFR 48 ML/MIN
[2025-05-15 01:01] LABS: PRO BRAIN NATRIURETIC PEPTIDE 1997 PG/ML (0-125)
--- NOTE | 2025-05-15 01:28 | VASCULAR REPORT ---
left lower extremity venous duplex Clinical History: left lower extremity swelling Comparison: None Technique: Duplex Doppler evaluation of the deep venous systems of both lower extremities from the common femora l veins to the popliteal veins including color Doppler and spectral/pulsed waveform analysis was perf ormed. Findings: The common femoral vein demonstrates appropriate compressibility and waveform variability. There is compressibility/patency of the great saphenous vein at the proximal thigh. The femoral vein demonstrates appropriate compressibility and waveform variability. The deep femoral vein demonstrates appropriate compressibility and waveform variability. The popliteal vein demonstrates appropriate compressibility and waveform variability. There is normal compressibility at the tibioperoneal trunk. Impression: 1. No left femoropopliteal venous thrombosis.
[2025-05-15 01:31] VITALS: PULSE 79
[2025-05-15 02:19] VITALS: BP 128/67; RESP 15; TEMP 97.9; O2SAT 100
--- NOTE | 2025-05-15 04:27 | VASCULAR REPORT ---
BILATERAL Lower Extremity Arterial Duplex Date: 05/15/2025 12:38 AM Clinical History: Left lower extremity swelling Comparison: None Technique: Duplex Doppler evaluation including color Doppler and spectral/pulsed waveform analysis of the lower extremity arteries was performed. Finding: Peak systolic velocities are as follows: SHOWROOM EXECUTIVE DIRECTOR 207 cm/s Deep femoral 69 cm/s SFA proximal 114 cm/s SFA mid-portion 125 cm/s SFA distal 109 cm/s Popliteal 86 cm/s Posterior tibial 15 cm/s Peroneal 14 cm/s Dorsalis pedis 23 cm/s The waveforms are triphasic hip REFERENCE VALUES, [facility] ([facility]) vascular Imaging Lab Criteria: Peak systolic velocity ranges (in cm/sec) are as follows: <150 cm/s - <20 % stenosis 150-200 cm/s - 20-49% stenosis 200-300 cm/s - 50-75% stenosis >300 cm/s -> 75% stenosis IMPRESSION: 1. There is no evidence for peripheral vascular insufficiency in the left lower extremity. 2. No significant focal stenosis is identified.
== END 2025-05-15 03:05 | disposition home or self-care (01) ==
LOC: ER 22:06
DX: R60.0 Localized edema (principal); R06.02 Shortness of breath; I50.9 Heart failure, unspecified; Z90.710 Acquired absence of both cervix and uterus; Z79.82 Long term (current) use of aspirin; Z79.899 Other long term (current) drug therapy
CPT/HCPCS: 36415; 73630; 80053; 83880; 85025; 93926; 93971; 99283; 99284

== ENCOUNTER 2025-06-27 21:30 | Inpatient (IN) | payer BC, MEDICAID ==
[~2025-06-27] VITALS: Ht 162.6 cm; Wt 59.3 kg
--- NOTE | 2025-06-27 21:43 | Physician Documentation ---
History of Present Illness ~ Chief Complaint: Stroke Alert Stated Complaint: STROKE Time Seen by MD: 21:35 Primary Medical Doctor: [facility] HPI Patient presents to the emergency room with acute onset left upper and left lower extremity weakness onset yesterday. Weakness to the point where she can not really walk. Patient also having some problems maintaining secretions on the left. she is not on blood thinners Medication Reconciliation Allergies: Coded Allergies: No Known Drug Allergies (Verified Allergy, Unknown, 10/16/21) Scheduled Aspirin (Ecotrin*), 1 TAB PO Q24H Atorvastatin Calcium (Lipitor), 10 MG PO HS Metoprolol Tartrate (Lopressor tablet), 12.5 MG PO BID Scheduled PRN Hydrocodone Bit/Acetaminophen (Hydrocodon-Acetaminophn 10-325 tablet), 1 TAB PO Q6H PRN for MODERATE PAIN 4-6 Past Medical History Past Medical History: Congestive Heart Failure, Heart Valve Disease Past Surgical History: hysterectomy Other Past Surgical History: Arctic valve replacement, septal myomectomy Patient History: Patient reports no known family medical history. Other Past Family History: NONCONTRIBUTORY Alcohol Use: None Drug Use: none Lives with: Family Lives In: Home Review of Systems ROS All review of systems negative except as per HPI Physical Exam Vital Signs: Temperature: 98.0, Heart Rate: 85, Respiratory Rate: 16, BP: 158/76, Pulse Oximetry: 99 Oxygen Flow Rate: 0 General Appearance General: Patient is awake, alert, oriented x4 in no acute distress Head: Normocephalic and atraumatic. Eyes: Conjunctival normal. EOMI. PERRL. ENT: Mucous membranes moist. Neck: Supple, trachea is midline. Chest: Clear to auscultation bilaterally without rales, rhonchi, or wheezes. There is no accessory muscle use or retractions. Cardiac: RRR without murmurs, gallops, or rubs. Abd: Soft, nondistended, nontender, with normoactive bowel sounds. No guarding, rebound, or rigidity. Extremities: Noted left upper and lower extremity weakness to both flexion and extension. Progress Results/Orders Results/Orders Orders - MARKIE BRAGG MD Urinalysis, Cult If Indicated (06/27/25 21:35) Chest,Single View (06/27/25 21:35) Ct Stroke Alert (06/27/25 21:40) * Vital Signs Routine* [id number] (06/27/25 21:35) * Blood Glucose Assessment * ONCE (06/27/25 21:35) * Npo Until Passed Bedside Swa (06/27/25 21:35) Nursing Swallow Screen (06/27/25 21:35) Page Hospitalist (06/27/25 22:29) Fill Out Med Reconciliation (06/27/25 22:29) Completed Orders - MARKIE BRAGG MD Electrocardiogram (06/27/25 21:35) Cbc/Diff (06/27/25 21:35) BMP (06/27/25 21:35) Pt Inr (06/27/25 21:35) PTT (06/27/25 21:35) Type And Screen (06/27/25 21:35) Chest,Single View (06/27/25 21:35) Ct Stroke Alert (06/27/25 21:40) Vital Signs 06/27/25 06/27/25 06/27/25 06/27/25 21:38 21:56 22:05 22:09 Temp 98.0 Pulse 85 88 79 Resp 16 16 18 16 B/P (MAP) 158/76 153/76 153/76 (101) Pulse Ox 99 98 99 O2 Flow Rate 0 0 Laboratory Tests Test 06/27/25 21:35 06/27/25 21:52 Glucometer 103 White Blood Count 10.8 Red Blood Count 3.68 L Hemoglobin 10.9 L Hematocrit 32.2 L Mean Corpuscular Volume 87.5 Mean Corpuscular Hemoglobin 29.7 Mean Corpuscular Hemoglobin Concent 34.0 Red Cell Distribution Width 13.6 Platelet Count 271 Mean Platelet Volume 7.2 L Neutrophils (%) (Auto) 85.8 H Lymphocytes (%) (Auto) 7.4 L Monocytes (%) (Auto) 6.2 Eosinophils (%) (Auto) 0.2 Basophils (%) (Auto) 0.4 Neutrophils # (Auto) 9.3 H Lymphocytes # (Auto) 0.8 L Monocytes # (Auto) 0.7 Eosinophils # (Auto) 0.0 Basophils # (Auto) 0.0 CBC Comment Prothrombin Time 11.8 INR International Normalized Ratio 1.2 Activated Partial Thromboplast Time 30 Coagulation Comments Sodium Level 138 Potassium Level 3.8 Chloride Level 104 Carbon Dioxide Level 21.1 L Anion Gap 13 Blood Urea Nitrogen 13 Creatinine 0.94 H Estimated GFR/1.73 m2 60 BUN/Creatinine Ratio 13.8 Glucose Level 104 Calcium Level 8.5 Albumin 3.0 L Chemistry Comments Medical Decision Making Findings Patient presents to the emergency room with stroke-like symptoms since yesterday. Differentials include but are not limited to stroke, transverse myelitis, radiculopathy therefore emergent labs and imaging indicated. Patient is outside the window for TNK therefore level two stroke called. Tele neurologist consulted and recommends against TNK. We will admit for further investigation. Departure Admitted to Inpatient Unit: yes, to hospitalist Impression: Primary Impression: Cerebral infarction Condition: Guarded Referrals: NO PRIMARY CARE PROVIDER (PCP) Critical Care Note Total Time (mins): 30 Critical Care Note The very real possibility of a deterioration of this patient's condition required the highest level of my preparedness for sudden, emergent intervention. I provided critical care services, which included medication orders, frequent reevaluations of the patient's condition and response to treatment, ordering and reviewing test results, and discussing the case with various consultants. Excludes time spent performing separately billable procedures. The critical care time associated with the care of the patient was 30 minutes not counting procedures Signature Scribe Signature: No scribe Attestation: The note accurately reflects work and decisions made by me.Markei Bragg MD 06/27/25 23:28 MARKIE BRAGG MD Jun 27, 2025 21:43
[2025-06-27 22:02] LABS: MEAN PLATELET VOLUME 7.2 FL (7.4-10.4); RED CELL DISTRIBUTION WIDTH 13.6 % (11.5-14.5)
--- NOTE | 2025-06-27 22:03 | RADIOLOGY REPORT ---
EXAM: CT CT STROKE ALERT INDICATION: left sided weakness TECHNIQUE: CT of the head without intravenous contrast. Radiation Dose Information: CT Dose: CTDI volume is 44.97 mGy. Dose-length product is 804.28 mGy*cm The dose indicators for CT are the volume Computed Tomography (CT) Dose Index (CTDIvol) and the Dose Length Product (DLP), and are measured in units of mGy and mGy-cm, respectively. These indicators are not patient dose, but values generated from the CT scanner acquisition factors. The report includes radiation exposure data for exposures received during this examination. COMPARISON: None FINDINGS: Evaluation is degraded by motion artifact. No acute territorial infarct, intracranial hemorrhage, or mass effect. There are global involutional changes with compensatory prominence of the ventricles and sulci. Patchy periventricular and subcortical white matter hypoattenuation is nonspecific but may be related to small vessel ischemic disease. There are small chronic right cerebellar infarcts. The orbits are normal. The paranasal sinuses and mastoid air cells are clear. The osseous structures are unremarkable. IMPRESSION: 1. Motion degraded evaluation. Within this limitation, no CT evidence of large intracranial hemorrhage or acute territorial infarct. No mass effect. 2. Age-related involutional changes. Chronic ischemic changes as detailed. 3. If clinical symptoms persist, MRI is suggested in further evaluation. Critical Result: Stroke Alert Findings discussed with BAMBI TORRES at 06/27/2025 10:01 PM, and acknowledged receipt and understanding of the findings.
[2025-06-27 22:11] LABS: CREATININE 0.94 MG/DL (0.40-0.90); TOTAL CARBON DIOXIDE 21.1 MMOL/L (24-32); eCRCL 52 ML/MIN; eGFR 60 ML/MIN
--- NOTE | 2025-06-27 22:11 | ELECTROCARDIOGRAPH REPORT ---
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 Abdirizak Mcfarland Measurements Intervals [place] Rate: 79 P: 36 MN: 190 QRS: -42 QRSD: 160 T: 113 QT: 463 QTc: 531 Interpretive Statements Sinus rhythm Atrial premature complex Probable left atrial enlargement Left bundle branch block Baseline wander in lead(s) V5,V6 Electronically Signed On 07-06-2025 21:51:[address] Abdirizak Mcfarland Please click the below link to view image of tracing.
[2025-06-27 22:13] LABS: APTT 30 SECONDS (22-32); INR 1.2 INR
--- NOTE | 2025-06-27 22:56 | RADIOLOGY REPORT ---
EXAM: DI CHEST,SINGLE VIEW TECHNIQUE: Single frontal chest radiograph CLINICAL HISTORY: Stroke Alert COMPARISON: DI CHEST,SINGLE VIEW on DOS: 07/05/23, CHEST,SINGLE VIEW on DOS: 10/27/21, CHEST,SINGLE VIEW on DOS: 10/26/21, CHEST,SINGLE VIEW on DOS: 10/25/21, CHEST,SINGLE VIEW on DOS: 10/24/21 FINDINGS/IMPRESSION: The lungs are clear. The cardiomediastinal silhouette is unchanged, mildly enlarged. Median sternotomy changes are noted. No pleural effusion or pneumothorax. No acute osseous abnormality.
[2025-06-28] VITALS (9 sets, daily range): BP systolic 113–145; BP diastolic 58–76; PULSE 70–84; RESP 13–18; TEMP 97.3–98.1; O2SAT 98–99
[2025-06-28] MEDS ORDERED: NO HOME MEDS (00:03)
--- NOTE | 2025-06-28 00:07 | CONSULTATION REPORT ---
Consult Providers to CC ~ History of Present Illness Reason for Admit\Complaint: Code stroke History of Present Illness [facility] Note # Demographics Consult Type: Acute Stroke Level 2 (4.5-24 hrs) Patient Location: Emergency Room First Name: Abi Last Name: Dayne Date of : 1960 Age: 65 Gender: Female Facility: [facility] Time of Initial Page (): 06/27/2025 21:52 First Contact with Site (): 06/27/2025 21:53 # HPI Chief Complaint: - weakness (focal) - speech changes History: 65 year old female with PMH of HTN, HLD presents with left sided weakness, slurred speech. LKN well yesterday. # Scores Time of exam and NIHSS (): 06/27/2025 21:55 Level of Consciousness 1a: [0] = Alert; keenly responsive LOC Questions 1b: [0] = Answers both questions correctly LOC Commands 1c: [0] = Performs both tasks correctly Best Gaze 2: [0] = Normal Visual 3: [0] = No visual loss Facial Palsy 4: [1] = Minor paralysis Motor Arm Left 5a: [1] = Drift Motor Arm Right 5b: [0] = No drift Motor Leg Left 6a: [1] = Drift Motor Leg Right 6b: [0] = No drift Limb Ataxia 7: [0] = Absent Sensory 8: [1] = Ezrm-wc-vcfzxoxx sensory loss Best Language 9: [0] = No aphasia Dysarthria 10: [1] = Hivd-wg-ewzcpjiw dysarthria Extinction and Inattention 11: [0] = No abnormality NIHSS Total: 5 # Exam Time of Exam (): 06/27/2025 21:59 # Assessment Impression: - Ischemic Stroke (Acute) Differential Diagnosis: - Ischemic Stroke (Acute) - Weakness # Plan Thrombolytic/Intervention: NOT IV Thrombolysis or IA Intervention candidate Thrombolytic Exclusion: > 4.5 hours Intraarterial Exclusion: - clinical exam not consistent with presence of large vessel occlusion (LVO), can reconsider if LVO found on vascular imaging Modified Yaw Scale (mRS) pre-stroke: [0] = No symptoms at all. Target Blood Pressure: - SBP < 220 - DBP < 120 Labs: - CBC - comprehensive metabolic panel - hemoglobin A1c - lipid panel - TSH - urine drug screen - ua Imaging: (urgency: STAT): - CT Angiogram Head and CT Angiogram Neck AND call back with results if abnormal Imaging: (urgency: routine): - MRI Brain without contrast Diagnostic Test: - echo without bubble study Therapy/Evaluation: - NPO until swallow evaluation - PT/OT evaluation - speech/swallow consultation Medication: - aspirin 81 mg daily - start statin with goal of LDL < 70 DVT Prophylaxis: - SCD Other: - If patient has any neurological deterioration please call me back immediately - LDL < 70 - telemetry monitoring - I have discussed my recommendations with the referring provider - will need event monitor or loop recorder as outpatient if atrial fibrillation not found as inpatient - neurology referral as outpatient Disposition: admit # Logistics Attestation of consult completion: The patient is located at: [facility]. Facility staff participated in the visit. I performed this telemedicine visit from my offsite office utilizing interactive 2 way audio and visual telecommunication technology at the request of the onsite emergency room provider. Total time spent in telemedicine encounter: I spent 40 minutes reviewing clinical data and/or imaging, obtaining history, examining the patient, communicating with the onsite care team, and in preparation of this report. # Demographics First Name: Abi Last Name: Dayne Facility: [facility] Electronically signed at 06/27/2025 22:02 ([place] Time) by Mateo Dykes MD Allergies: Coded Allergies: No Known Drug Allergies (Verified Allergy, Unknown, 10/16/21) Home Medications Home Medications Active Ecotrin* (Aspirin) 81 Mg Tablet.dr 1 Tab PO Q24H Lopressor tablet (Metoprolol Tartrate) 25 Mg Tablet 12.5 Mg PO BID Hold for SBP below 100mm Hg Hold for Heart Rate below 60. Lipitor (Atorvastatin Calcium) 10 Mg Tablet 10 Mg PO HS Hydrocodon-Acetaminophn 10-325 tablet (Acetaminophen/Hydrocodone Bitart) 1 Each Tablet 1 Tab PO Q6H PRN Reported No Home Medications (Home Med List) Each Family History Family History: Patient reports no known family medical history. Exam Vitals: Vital Signs Date Time Temp Pulse Resp B/P (MAP) Pulse Ox O2 Delivery O2 Flow Rate FiO2 06/27/25 22:09 79 16 153/76 (101) 99 0 06/27/25 21:38 98.0 Diagnostic Data Last Recorded Lab Results: 06/27/25215106/27/252151 Diagnostic Data: Laboratory Tests Test 06/27/25 21:52 Prothrombin Time 11.8 SECONDS (9.0-12.0) INR International Normalized Ratio 1.2 INR Activated Partial Thromboplast Time 30 SECONDS (22-32) Coagulation Comments MATEO DYKES III [facility] 2024 00:07
[2025-06-28] MEDS ORDERED: magnesium Cl slow-release 64mg tablet PO PRN (00:25)
[2025-06-28] MEDS ORDERED: ondansetron/PF 4mg/2ml inj IV PRN (00:25)
[2025-06-28] MEDS ORDERED: potassium Cl 40MEQ/1/2NS 520ml 520 ML IV PRN (00:25)
[2025-06-28] MEDS ORDERED: clopidogrel 300mg tablet PO ONE (00:25)
[2025-06-28] MEDS ORDERED: potassium Cl 20 mEq SR tablet PO PRN ×2 (00:25)
[2025-06-28] MEDS ORDERED: magnesium sulf-water 4G/100mL 100 ML IV PRN (00:25)
[2025-06-28] MEDS ORDERED: magnesium sulf-water 2g/50mL 50 ML IV PRN (00:25)
[2025-06-28] MEDS ORDERED: magnesium hydroxide 30ml (MOM) UD suspension PO PRN (00:25)
--- NOTE | 2025-06-28 01:28 | HISTORY AND PHYSICAL-Residence ---
History & Physical Providers to CC Resident Creating Document: AMELIA CAIN RES ~ History of Present Illness Primary Medical Doctor: [facility] Reason for Admit\Complaint: Stroke History of Present Illness 65-year-old woman with hypertension and hyperlipidemia presented with sudden onset of left-sided weakness and imbalance beginning yesterday afternoon. She reports progressive difficulty using the left arm and leg, particularly when standing or walking, associated with slurred speech that is new. She describes pain and heaviness in the left extremities and inability to maintain balance but denies headache, vision loss, facial droop prior to yesterday, or loss of consciousness. She did not fall or strike her head. Symptoms have persisted and worsened since onset. Neurology evaluated the patient initial NIHSS = 5 (minor left facial weakness, left arm and leg drift, mild sensory loss, mild-moderate dysarthria). Given the time course she is outside the IV tPA window (>4.5 hours) and the clinical exam is suggestive of a possible CVA. CTA head/neck and MRI brain have been ordered. Primary care provider: [facility] , Dr. Carroll Cardiology: Dr. Madera, last saw him a couple of months ago Lives at home with uncle Ambulates independently Allergies: Coded Allergies: No Known Drug Allergies (Verified Allergy, Unknown, 10/16/21) Home Medications Home Medications Active Ecotrin* (Aspirin) 81 Mg Tablet.dr 1 Tab PO Q24H Lopressor tablet (Metoprolol Tartrate) 25 Mg Tablet 12.5 Mg PO BID Hold for SBP below 100mm Hg Hold for Heart Rate below 60. Lipitor (Atorvastatin Calcium) 10 Mg Tablet 10 Mg PO HS Hydrocodon-Acetaminophn 10-325 tablet (Acetaminophen/Hydrocodone Bitart) 1 Each Tablet 1 Tab PO Q6H PRN Reported No Home Medications (Home Med List) Each Past Medical History Past Medical History Severe aortic stenosis with a history of congestive heart failure Hyperlipidemia Hypertension Lower back pain Past Surgical History Surgical History Comment Aortic valve replacement Hysterectomy Family History Family History: Patient reports no known family medical history. Past Social History Social History Comment Denied smoking and alcohol use Illicit use of drugs: Occasional marijuana Alcohol Use: None Drug Use: None Lives with: Family Lives In: Home ROS ROS Reviewed in full. All negative except for pertinent positive HPI. Exam Vitals: Vital Signs Date Time Temp Pulse Resp B/P (MAP) Pulse Ox O2 Delivery O2 Flow Rate FiO2 06/28/25 00:22 85 06/27/25 22:09 16 153/76 (101) 99 0 06/27/25 21:38 98.0 General: Awake , alert, and oriented x4, resting comfortably in the bed, in no acute distress HEENT: Atraumatic, normocephalic, EOMI, anicteric sclera ; pink conjunctiva Neck: Trachea midline. Supple, full range of motion, no JVD Cardiac: Regular rhythm, regular rate with systolic murmurs all over the precordium. Respiratory: Equal breath sounds bilaterally, no tachypnea, no wheezing ,rub or rales, Chest wall is symmetric and without deformity. Gastrointestinal: Abdomen symmetric, non-distended, soft, non-tender, normal bowel sounds x4 quadrant, normoactive, no hepatosplenomegaly Musculoskeletal: No Pedal edema, no cyanosis Neurological: Mental status exam: alert and consciousness, orientation, memory, slurred speech Cranial nerve exam: EOM full; facial strength normal, Minor facial weakness, mild right-sided droop present Motor strength Right: 4/5 (upper & lower) Left: 3/5 (upper & lower) Motor tone / bulk Right Normal Left Mild decreased tone Sensory Right: Intact to light touch Left : Decreased / absent to light touch Reflexes (DTRs) Right: Normal Left: hyporeflexia Cerebellar finger-nose Right: Normal Left: Abnormal Cerebellar uohp-tu-kwsi Right: Normal Left : Normal Gait / balance: Unable to fully assess safely in ED Skin: Warm and dry Diagnostic Data Last Recorded Lab Results: 06/27/25215106/27/[id number] Diagnostic Data: Laboratory Tests Test 06/27/25 21:52 Prothrombin Time 11.8 SECONDS (9.0-12.0) INR International Normalized Ratio 1.2 INR Activated Partial Thromboplast Time 30 SECONDS (22-32) Coagulation Comments Advance Care Planning Advanced Care plannin - 30 Minutes Additional Plan 1) Acute ischemic stroke left hemispheric distribution (clinically) Acute left-sided weakness, new dysarthria, sensory loss, NIHSS 5 Outside IV tPA window Tele neurology was consulted Imaging STAT CTA head and neck, already ordered MRI brain without contrast ordered Labs / diagnostics CBC, CMP, HbA1c, lipid panel, TSH, urine drug screen, UA EKG shows sinus rhythm with atrial premature complexes Cardiac workup Echo with bubble ordered to evaluate for structural or cardioembolic source Continue telemetry, arrange outpatient event monitor if needed Stat dose of aspirin 325 mg and Plavix 300 mg ordered, Aspirin 81 mg PO now (per neurology). Also ordered Plavix 75 mg p.o. daily Started high-intensity statin atorvastatin 80 mg with goal LDL < 70 mg/dL Blood pressure target: permissive hypertension - SBP < 220 / DBP < 120 NPO until swallow evaluation by speech therapy PT and speech/swallow therapy evaluation ordered 2. Hypertension: Allow permissive hypertension for the next 24 hours Is hypertension still persists, start metoprolol 25 mg p.o. daily 3. Aortic stenosis, status post diagnostic valve replacement in [address] Madera Pending echocardiogram for further evaluation 4. Pre renal EMILIANO: Creatinine 0.94 Ordered urine lytes, follow up Ns @ 70cc/hr, follow CMP 5. Normocytic anemia: Hb: 10.9, normal RDW and MCV Anemia workup: B12, iron studies, folate and TSH ordered Code Status: I spent a total of 17 minutes on reviewing various resuscitative measures with the patient at the time of admission. The patient has decided on a full code status. DVT Prophylaxis: Heparin SQ Nutrition: NPO until BSS PT: Ordered Prognosis: Guarded Amelia Cain MD Internal Medicine Resident, PGY-2 Patient seen and evaluated using HIPPA compliant AV device Agree with plan as discussed with the resident Carolina Hernandez MD Date of Service: Jun 28, 2025 Billing Provider: CAROLINA HERNANDEZ MD, GAURAV, RES Jun 28, 2025 01:28 CAROLINA HERNANDEZ MD Jun 28, 2025 03:10
[2025-06-28] MEDS: normal saline 1000ml 1,000 ML IV SCH (01:56)
[2025-06-28 06:45] LABS: OSMOLALITY 275 MOSM/K (280-300)
[2025-06-28 06:47] LABS: % IRON SATURATION 14 % (11-46)
[2025-06-28] MEDS: K and/or MAG REPLACEMENT MC SCH (08:00)
[2025-06-28 08:33] LABS: MEAN PLATELET VOLUME 7.6 FL (7.4-10.4); RED CELL DISTRIBUTION WIDTH 13.4 % (11.5-14.5)
[2025-06-28] MEDS: docusate sod 100mg capsule PO SCH (08:58)
[2025-06-28] MEDS: mag hydrox/Alum hydrox/simeth 30ml oral suspension PO PRN (09:04)
[2025-06-28 09:16] LABS: CREATININE 0.85 MG/DL (0.40-0.90); TOTAL CARBON DIOXIDE 19.5 MMOL/L (24-32); eCRCL 58 ML/MIN; eGFR 67 ML/MIN
[2025-06-28] MEDS: aspirin 81mg, enteric-coated 1 TAB TABLET.DR PO SCH (14:17)
[2025-06-28 14:22] LABS: CHOL/HDL RATIO 3.5 (0.00-4.99); LDL CHOLESTEROL 87 MG/DL (50-100)
--- NOTE | 2025-06-28 14:26 | CARDIOLOGY REPORT ---
APPROVED REPORT EXAM: Comprehensive 2D, Doppler, and color-flow Echocardiogram with saline. Patient Location: 302 Blood Pressure: 117/60 mmHg Heart Rate: 64 bpm Indications CVA/TIA 21 mm Espinosa Inspiris AVR (10/24/2021) Congestive Heart Failure Hypertension REBEAMER: Devan Madera MD Previous ECHO/ANGELO: 10/24/21, [facility], EF: 75; AVR GRAD: ; PKV: 2.7 2D Dimensions LA Diam 3.5 cm IVSd 1.3 (0.7-1.1cm) LVDd 4.3 cm PWd 1.2 (0.7-1.1cm) IVSs 2.1 (0.8-1.2cm) LVDs 2.5 (2.5-4.0cm) PWs 1.4 (0.8-1.2cm) LVEF(%) 74.1 (>50%) Ao Asc Diam. 3.41 cm FS (%) 42.7 % SV 62.8 ml CO 2.8 L/min M-Mode Dimensions Left Atrium(MM) 3.58 (2.5-4.0cm) Aortic Root 3.38 (2.2-3.7cm) Aortic Cusp Exc 1.36 (1.5-2.0cm) MV EPSS 0.3 (<0.5cm) Aortic Valve AoV Peak Jorge. 452.8 cm/s AoV VTI 109.1 cm AO Peak GR. 82.0 mmHg AO Mean GR. 54 mmHg LVOT VTI 30.37 cm LVOT Peak Jorge. 161.5 cm/s AV DI 0.28 % Mitral Valve MV E Velocity 131.9 cm/s MV Peak Gr. 15 mmHg MV DECEL TIME 212 ms MV A Velocity 178.7 cm/s MV Mean Gr. 8 mmHg MV PHT 64 ms E/A Ratio 0.7 MVA (PHT) 3.44 cm2 MV VMax 195.8 cm/s MV VMean 132.9 cm/s MV VTI 42.0 cm TDI Lateral E' P. V 9.30 cm/s E/Lateral E' 14.2 Tricuspid Valve TR P. Velocity 351 cm/s RAP ESTIMATE 10 mmHg TR Peak Gr. 49 mmHg RVSP 59 mmHg LEFT VENTRICLE Normal LV size and function. Mild concentric hypertrophy. Overall LVEF is 70-75%. RIGHT VENTRICLE RV is normal size and function. Estimated PA systolic pressure of 59 mm of mercury ATRIA The left atrium size is normal. Saline study was performed with 3 IV injections of 10 ccs of agitated normal saline at rest, with cough, and with valsalva. Negative saline study for right to left flow. AORTIC VALVE 21 mm Espinosa Inspiris bioprosthetic AVR appears well seated with increased velocities across the AV/LVOT. Peak / mean gradients of 82 / 54 mmHG. Peak velocity is measured at 4.52 m/sec. Tace insufficiency. Finding consistent with prosthetic aortic valve stenosis. MITRAL VALVE Mitral valve leaflets are thickened with mild mitral annular calcification. Moderate stenosis present with peak / mean gradients of 15 / 8 mmHg. Mild regurgitation. TRICUSPID VALVE The tricuspid valve is normal in structure with mild to moderate regurgitation. PULMONIC VALVE Pulmonic valve is grossly normal in structure with physiologic insufficiency GREAT VESSELS The aortic root is normal in size. The ascending aorta is normal in size. The IVC is normal in size and collapses >50% with inspiration. PERICARDIUM Normal pericardium. No effusion. Other Information Study Quality: Adequate Conclusion Overall LVEF is 70-75%. Normal LV size and function. Mild concentric hypertrophy. RV is normal size and function. Estimated PA systolic pressure of 59 mm of mercury The left atrium size is normal. Saline study was performed with 3 IV injections of 10 ccs of agitated normal saline at rest, with cough, and with valsalva. Negative saline study for right to left flow. 21 mm Espinosa Inspiris bioprosthetic AVR appears well seated with increased velocities across the AV/LVOT. Peak / mean gradients of 82 / 54 mmHG. Peak velocity is measured at 4.52 m/sec. Tace insufficiency. Finding consistent with prosthetic aortic valve stenosis. Mitral valve leaflets are thickened with mild mitral annular calcification. Moderate stenosis present with peak / mean gradients of 15 / 8 mmHg. Mild regurgitation. The tricuspid valve is normal in structure with mild to moderate regurgitation. Pulmonic valve is grossly normal in structure with physiologic insufficiency Normal pericardium. No effusion.
--- NOTE | 2025-06-28 14:57 | PROGRESS NOTE- Residence ---
Progress Note - Resident Providers to CC Resident Creating Document: DARSHANA PRATER RES CC: ITZEL MARTIN MD ~ Antibiotic Timeout Antibiotic Ordered?: No Subjective Patient was seen and examined at bedside, she continues to have left upper and lower extremity weakness with addition to slurred speech. Explained to the patient regarding her CT scan findings. Objective Vital Signs Date Time Temp Pulse Resp B/P (MAP) Pulse Ox O2 Delivery O2 Flow Rate FiO2 06/28/25 07:00 97.3 70 13 113/62 (79) 98 Room Air 06/27/25 22:09 0 General examination: Awake , alert, and oriented x4, resting comfortably in the bed, in no acute distress, patient continues to have slurred speech HEENT: Atraumatic, normocephalic, EOMI, anicteric sclera ; pink conjunctiva Neck: Trachea midline.Supple, full range of motion, no JVD Cardiac: Regular rhythm, regular rate with systolic murmurs all over the precordium. Respiratory: Equal breath sounds bilaterally, no tachypnea, no wheezing ,rub or rales, Chest wall is symmetric and without deformity. Midsternal scar present post aortic valve replacement Gastrointestinal: Abdomen symmetric, non-distended, soft, non-tender, normal bowel sounds x4 quadrant, normoactive, no hepatosplenomegaly Musculoskeletal: No Pedal edema, no cyanosis. Multiple nodules present on multiple DIPs bouchards and herbedens nodules present bilaterally Neurological: Mental status exam: alert and consciousness, orientation, memory, slurred speech Cranial nerve exam: EOM full; facial strength normal, Minor facial weakness, mild right-sided droop present, frowning noted bilaterally patient's forehead- and possibly upper motor neuron lesion Motor strength Right: 4/5 (upper & lower) Left: 3/5 (upper & lower) Motor tone / bulk Right Normal Left Mild decreased tone Sensory Right: Intact to light touch Left : Decreased / absent to light touch Reflexes (DTRs) Right: Normal Left: hyporeflexia Cerebellar finger-nose Right: Normal Left: Abnormal Cerebellar hqod-jb-high Right: Normal Left : Normal Gait / balance: Unstable gait, patient could not walk even a couple of steps Skin: Warm and dry Result Diagram: 06/28/25 0532 06/28/25 0532 Coagulation Studies Laboratory Tests Test 06/27/25 21:52 Prothrombin Time 11.8 SECONDS (9.0-12.0) INR International Normalized Ratio 1.2 INR Activated Partial Thromboplast Time 30 SECONDS (22-32) Coagulation Comments Plan Plan Acute ischemic stroke left hemispheric distribution Upper motor neuron facial palsy Noncompliance with her home medication aspirin 81 mg, atorvastatin 10 mg and metoprolol tartrate 12.5 mg p.o. b.i.d. Acute left-sided weakness, new dysarthria, sensory loss, NIHSS 5 Patient was outside tPA window and hence did not receive it Tele neurology was consulted CT head reported Motion degraded evaluation. Within this limitation, no CT evidence of large intracranial hemorrhage or acute territorial infarct. No mass effect. CTA reported : No evidence of stenosis, aneurysm, or dissection. MRI report: Multiple small acute/recent infarcts in the right centrum semiovale, right [place] radiata, right basal ganglia, right insula. Tiny acute/recent infarct in the upper medial right cerebellum. Mild cerebral volume loss and mild chronic microvascular ischemic change. Acute right sided infarcts Echocardiogram reports Overall LVEF is 70-75%. Normal LV size and function. 21 mm Espinosa Inspiris bioprosthetic AVR appears well seated with increased velocities across the AV/LVOT. Peak / mean gradients of 82 / 54 mmHG. Peak velocity is measured at 4.52 m/sec. Tace insufficiency. Finding consistent with prosthetic aortic valve stenosis. Patient received one dose of 300 mg clopidogrel and 325 mg aspirin stat dose Patient's LDL is 87, target LDL for this patient would be less than 70, Blood pressure is within normal limits Plan -continue clopidogrel 75mg p.o. once daily, atorvastatin 80 mg p.o. once daily, aspirin 81 mg p.o. 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 Madera, recommendations Carotid ultrasound examination. MRA may not be accurate. No need for a permanent pacemaker at this time. Continue on monitor.No need for diagnostic heart catheterization at this time. Stat EKG showed bundle-branch block with first-degree AV block, possible bifascicular block Plan -continue telemetry monitoring -follow with carotid ultrasound Aortic stenosis, status post diagnostic valve replacement in 2019 Pansystolic murmur heard throughout the precordium Follows outpatient with Dr. Madera Normocytic anemia 2/2 anemia of chronic disease Hb: 10.9, normal RDW and MCV Low Iron 35, low TIBC 249 normal percentage saturation 14% TSH normal Plan -follow up with B12 levels Cannabinoid Use Recommened cessastion of Cannabinoid Use. DVT Prophylaxis: SCDs Nutrition: NPO until BSS PT: Ordered Prognosis: Guarded Disposition:Continue telemetry monitoring, follow-up carotid ultrasound report Darshana Prater MD Internal Medicine Resident, PGY-1 PGY2 resident attestation: I have seen and evaluated the patient independently. I have reviewed the history, physical examination, laboratory and imaging findings and the assessment and plan documented by the PGY1 resident. I agree with the findings and plan as documented with the following additions/modifications: Ruth Ann Toth MD PGY 2 internal medicine resident Date of Service: Jun 28, 2025 Billing Provider: ITZEL MARTIN MD, JAHNAVI, RES Jun 28, 2025 14:57 RUTH ANN SMART, RES Jun 28, 2025 19:11 CLEMENCIA GRISSOM, RES Jun 29, 2025 09:12
--- NOTE | 2025-06-28 15:30 | RADIOLOGY REPORT ---
EXAM: MR MRI HEAD HISTORY: stroke TECHNIQUE: Multiplanar and multisequence MR imaging of the head was performed. COMPARISON: CT CTA NECK/HEAD on DOS: 06/28/25, CT CT STROKE ALERT on DOS: 06/27/25 FINDINGS: Multiple small to moderate-sized acute/ recent infarcts in the right centrum semiovale, right color[place] radiata, right basal ganglia, and right insula . Tiny acute/recent infarct in the upper medial right cerebellum. There are multiple tiny chronic appearing paset-blhsnwl-ysza-left cerebellar infarcts. Mild cerebral volume loss with concordant prominence of the subarachnoid spaces and ventricles. There is mild patchy FLAIR hyperintensities in the supratentorial and pontine white matter consistent with nonspecific white matter disease. There is no midline shift or herniation. The vascular flow-voids are unremarkable. IMPRESSION: 1. Multiple small acute/recent infarcts in the right centrum semiovale, right colorado radiata, right basal ganglia, right insula. 2. Tiny acute/recent infarct in the upper medial right cerebellum. 3. Mild cerebral volume loss and mild chronic microvascular ischemic change. Critical Result: Acute right sided infarcts Findings discussed with nurse brush fabrication supervisor Bhavya at 06/28/2025 3:25 PM, and acknowledged receipt and understanding of the findings. ..
--- NOTE | 2025-06-28 15:33 | ELECTROCARDIOGRAPH REPORT ---
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 Natividad Garcia Measurements Intervals [place] Rate: 76 P: 13 [place]: 194 QRS: -34 QRSD: 160 T: 120 QT: 456 QTc: 513 Interpretive Statements Sinus rhythm Left bundle branch block Electronically Signed On 06-29-2025 6:47:[address] Natividad Garcia Please click the below link to view image of tracing.
--- NOTE | 2025-06-28 16:10 | CONSULTATION REPORT ---
Cardiac Consultation Report Providers to CC ~ Subjective Subjective Cardiology consultation; I was called about arrhythmias on this patient. Concern for 2-1 heart block. She is sleeping on my arrival her phone is ringing and she sleeps through my examination. She opens her eyes and then goes back to sleep. She is here with a right hemisphere what appears to be multiple embolic stroke. It turns out I have seen her in the past. Her records are reviewed. 1. 10/16/2021 21 mm Inspira pericardial aortic valve replacement with septal myomectomy. 2. Preoperative diagnosis severe aortic stenosis and left ventricular outflow tract gradient. 3. Hospitalized with multi embolic appearing stroke in the right hemisphere while on aspirin therapy at home. Patient does not communicate. Per chart home medications were metoprolol 12.5 mg b.i.d. aspirin and a statin. Vicodin for pain relief. She lives with her uncle. A new echocardiogram has been performed with reported ejection fraction 70% concentric hypertrophy right ventricular systolic pressure 59 mm Hg. 21 mm Espinosa in Shahid bioprosthetic aortic valve with increased velocities peak gradient 82 mm Hg. Reviewing the images: Patient has septal hypertrophy with nearly complete obliteration of the left ventricular cavity during systolic contraction. The aortic valve leaflet appears to have mobility. Visually at least 1.2 cm excursion. 4. Electrocardiogram with left bundle branch block. Monitor strips reviewed and patient has Wenckebach at times 2-1. At the time of her initial valve replacement beta blockers with discontinued as she had Wenckebach at that time also. Objective Vitals Vital Signs Date Time Temp Pulse Resp B/P (MAP) Pulse Ox O2 Delivery O2 Flow Rate FiO2 06/28/25 07:00 97.3 70 13 113/62 (79) 98 Room Air 06/27/25 22:09 0 Lab Results: 06/28/25 0532 06/28/25 0532 Objective Obtunded patient. Grade 3 systolic aortic murmur radiation into the carotids. Possible carotid stenosis however three years ago she had none. Patient is obtunded and sleeps through my examination. Peripheral foot pulses are palpable there is nonpitting interstitial edema of lower extremities which is chronic. There are multiple bruises on both her arms. Coagulation Studies Laboratory Tests Test 06/27/25 21:52 Prothrombin Time 11.8 SECONDS (9.0-12.0) INR International Normalized Ratio 1.2 INR Activated Partial Thromboplast Time 30 SECONDS (22-32) Coagulation Comments Problem\Assessment\Plan Additional Plan Impression 1. Type 1 2nd degree atrioventricular block. Wenckebach. 2. Difficult to tell if patient has left ventricular outflow tract obstruction with a markedly thickened septum with partial superimposed prosthetic valve restenosis. 3. Etiology of CVA unknown. Appears to be embolic multiple sites and right hemisphere. As per records patient was on aspirin at home. An MRA I notice has been ordered and is pending. Recommendatio 1. Carotid ultrasound examination. MRA may not be accurate. 2. No need for a permanent pacemaker at this time. Continue on monitor. 3. No need for diagnostic heart catheterization at this time. 4. Consider maddie by someone experienced in interpretation. From transthoracic it appears to me that they aortic valve gradient is overestimated due to septal hypertrophy with hyperdynamic left ventricle ARISTEO SPIVEY MD Jun 28, 2025 16:10
--- NOTE | 2025-06-28 16:11 | RADIOLOGY REPORT ---
EXAM: CT CTA NECK/HEAD INDICATION: stroke EXAM DATE: 06/28/2025 01:11 PM COMPARISON: None TECHNIQUE: A noncontrast dataset was obtained. Subsequently, a volumetric data acquisition of the head and neck was obtained during the arterial phase of enhancement. A total of 60 mL of Omnipaque 350 was administered intravenously. One or more of the following radiation dose reduction techniques were used for this examination: automated exposure control, adjustment of the mA and/or kV according to patient size, use of iterative reconstruction technique. 3-D postprocessing is performed by technologist including MIP imaging Determination of the degree of stenosis in the internal carotid arteries is obtained using measurements of distal internal carotid diameter (directly or indirectly) as the denominator for stenosis measurement. The method utilized is similar to that utilized in the [place] Symptomatic Carotid E ndarterectomy Trial (NASCET) method. If the degree of stenosis is greater than 30%, the actual percentage stenosis is given in the body of the report. Radiation Dose Information: CT Dose: CTDI volume is 27.2 mGy. Dose-length product is 433.45 mGy*cm Findings: Neck: The aortic arch and great vessels are within normal limits. The common carotid arteries, carotid bifurcation, internal and external carotid arteries are within normal limits. Vertebral arteries are within normal limits, with left dominant. No evidence of aneurysm, dissection, or stenosis. The pharynx and upper airway appear normal with no evidence of stricture or focal lesion. No evidence of cervical lymphadenopathy. The thyroid, submandibular, and parotid glands appear normal. Osseous structures and lung apices appear unremarkable. Brain: Intracranial Anterior Circulation: The RIGHT anterior circulation including the right internal carotid artery, middle cerebral artery, and anterior cerebral artery demonstrates no abnormality. The LEFT anterior circulation including the left internal carotid artery, middle cerebral artery, and anterior cerebral artery demonstrates no abnormality. The anterior communicating artery is unremarkable. No posterior communicating arteries are identified. Vertebrobasilar Circulation: The basilar artery is unremarkable. The RIGHT posterior cerebral artery, superior cerebellar artery, and posterior inferior cerebellar artery demonstrate no abnormality. The LEFT posterior cerebral artery, superior cerebellar artery, and posterior inferior cerebellar artery demonstrate no abnormality. Other: The visualized dural sinuses and intradural venous system are unremarkable. No evidence of intracranial mass, mass effect, or abnormal enhancement. The skull base, calvaria, orbits, and overlying soft tissues are intact. The paranasal sinuses, mastoid air cells, and middle ear cavities are clear and well aerated. Impression: 1. No evidence of stenosis, aneurysm, or dissection.
[2025-06-28] MEDS: PERFLUTREN PROTEIN-A MICROSPHR (Optison) 0.22 MG/ML 3ML VIAL IV ONE (16:50)
--- NOTE | 2025-06-28 18:13 | PROGRESS NOTE ---
Progress Progress Note: [place] [facility] # Demographics Consult Type: Acute Stroke Level 1 (0-4.5 hrs) Patient Location: Inpatient First Name: Abi Last Name: Dayne Gender: Female Facility: [facility] Time of Initial Page (): 06/28/2025 15:47 First Contact with Site ( Time): 06/28/2025 15:47 # HPI History: Follow up - Pt was seen yesterday as stroke alert for [employer]. MRI brain was performed and I was reconsulted for reviewing images and further recs. # Data MRI: Acute multifocal anterior and posterior circulation infarcts on the right # Assessment Impression: - Ischemic Stroke (Acute) Differential Diagnosis: - Ischemic Stroke (Acute) # Plan Thrombolytic/Intervention: NOT IV Thrombolysis or IA Intervention candidate Thrombolytic Exclusion: > 4.5 hours Intraarterial Exclusion: - no large vessel occlusion (LVO) Target Blood Pressure: - SBP < 220 - DBP < 120 Therapy/Evaluation: - PT/OT evaluation - speech/swallow consultation - NPO until swallow evaluation Medication: - aspirin 81 mg PLUS clopidogrel (Plavix) 75 mg for 21 days, then monotherapy therafter - start statin with goal of LDL < 70 Other: - If patient has any neurological deterioration please call me back immediately Additional Recommendations: Check for antiphospholipid antibodies. Outpatient 30 day event monitor. Disposition: continue admission # Logistics Attestation of consult completion: The patient is located at: [facility]. I performed this phone consultation from my offsite office Total time spent in telemedicine encounter: I spent 25 minutes in reviewing clinical data and/or imaging, obtaining history, communicating with the onsite care team, and in preparation of this report. # Demographics First Name: Abi Last Name: Dayne Facility: [facility] Electronically signed at 06/28/2025 18:09 () by Dea Dykes MD Results/Orders Result Diagram: 06/28/25 0532 06/28/25 0532 Dietary Evaluation Comments: S 07/02 Will provide a full nutrition assessment on the above date. DEA DYKES III [facility] 2024 18:13
--- NOTE | 2025-06-28 18:29 | VASCULAR REPORT ---
ULTRASOUND CAROTID DUPLEX BILATERAL REASON FOR EXAM: Left-sided weakness. Slurred speech. COMPARISON: CT CTA NECK/HEAD on DOS: 06/28/25, MR MRI HEAD on DOS: 06/28/25, CT CT STROKE ALERT on DOS: 06/27/25, VASC VL ARTERIAL on DOS: 05/15/25 TECHNIQUE: Using real-time freeze-frame technique with a high-frequency small parts transducer, multiple longitudinal and transverse sections were obtained. Simultaneous color flow Doppler imaging was performed. FINDINGS: Calcified and noncalcified plaques are present in both carotid bulbs and internal carotid arteries. Waveforms are normal. There is spectral broadening in the distal right ICA. Peak systolic velocities as well as ICA/CCA ratios are normal. Flow through the vertebral and external carotid arteries is antegrade bilaterally. PEAK SYSTOLIC VELOCITIES (cm/sec): RIGHT: CCA 78.4 Proximal ICA 68.0 Mid ICA 78.5 Distal ICA 97.9 ECA 87.4 ICA/CCA ratio 1.26 LEFT: CCA 70.1 Proximal ICA 69.0 Mid ICA 94.0 Distal ICA 56.5 ECA 78.7 ICA/CCA ratio 1.34 IMPRESSION: Atherosclerotic vascular disease with no hemodynamically significant stenosis. Any narrowing is less than 50%. Measurement of carotid stenosis is based on velocity parameters that correlate the residual internal carotid diameter with that of the more distal vessel in accordance with the [place] Symptomatic Carotid Endarterectomy Trial (NASCET).
[2025-06-29 02:00] VITALS: BP 112/62; PULSE 76; RESP 16; TEMP 97.8; O2SAT 98
[2025-06-29 06:23] LABS: MEAN PLATELET VOLUME 7.7 FL (7.4-10.4); RED CELL DISTRIBUTION WIDTH 13.3 % (11.5-14.5)
[2025-06-29 06:29] LABS: CHOL/HDL RATIO 3.3 (0.00-4.99); CREATININE 0.77 MG/DL (0.40-0.90); LDL CHOLESTEROL 75 MG/DL (50-100); TOTAL CARBON DIOXIDE 22.8 MMOL/L (24-32); eCRCL 64 ML/MIN; eGFR 75 ML/MIN
[2025-06-29 06:30] LABS: LEUKOCYTE ESTERASE ,URINE NEGATIVE (Neg); NITRITES, URINE NEGATIVE (Neg); OCCULT BLOOD,URINE NEGATIVE (Neg)
[2025-06-29 06:37] LABS: UA COLLECTION TYPE CLN CATCH MIDSTREAM
[2025-06-29 06:42] LABS: CREATININE,URINE RANDOM 77.0 MG/DL; URINE AMPHETAMINE SCREEN POSITIVE (Neg); URINE BARBITUATE SCREEN NEGATIVE (Neg); URINE BENZODIAZEPINES SCREEN NEGATIVE (Neg); URINE CANNABINOID SCREEN POSITIVE (Neg); URINE COCAINE SCREEN NEGATIVE (Neg); URINE METHADONE SCREEN NEGATIVE (Neg); URINE OPIATE SCREEN NEGATIVE (Neg); URINE PHENCYCLIDINE SCREEN NEGATIVE (Neg)
[2025-06-29 07:40] LABS: OSMOLALITY UA 604 MOSM/K (50-1400)
[2025-06-29 07:46] LABS: UA EOSINOPHILS NO EOS /HPF
[2025-06-29 08:00] VITALS: RESP 16; O2SAT 99
[2025-06-29 18:00] VITALS: BP 120/90; PULSE 83; RESP 19; TEMP 97.8; O2SAT 100
--- NOTE | 2025-06-29 18:58 | PROGRESS NOTE- Residence ---
Progress Note - Resident Providers to CC Resident Creating Document: DARSHANA PRATER RES CC: ITZEL MARTIN MD ~ Antibiotic Timeout Antibiotic Ordered?: No Subjective Patient was seen and examined at bedside, she continues to have left upper and lower extremity weakness with addition to slurred speech. Explained to the patient regarding her imaging findings and noted the prognosis of her CVA. Explained to the patient the importance of medication adherence dual antiplatelet and statin. Patient will get discharge to post acute rehab care tomorrow Objective Vital Signs Date Time Temp Pulse Resp B/P (MAP) Pulse Ox O2 Delivery O2 Flow Rate FiO2 06/29/25 08:00 16 99 Room Air 06/29/25 06:30 55 06/29/25 02:00 97.8 112/62 (79) 06/28/25 17:06 0 21 Awake , alert, and oriented x4, resting comfortably in the bed, in no acute distress, patient continues to have slurred speech HEENT: Atraumatic, normocephalic, EOMI, anicteric sclera ; pink conjunctiva Neck: Trachea midline.Supple, full range of motion, no JVD Cardiac: Regular rhythm, regular rate with systolic murmurs all over the precordium. Respiratory: Equal breath sounds bilaterally, no tachypnea, no wheezing ,rub or rales, Chest wall is symmetric and without deformity. Midsternal scar present post aortic valve replacement Gastrointestinal: Abdomen symmetric, non-distended, soft, non-tender, normal bowel sounds x4 quadrant, normoactive, no hepatosplenomegaly Musculoskeletal: No Pedal edema, no cyanosis. Multiple nodules present on multiple DIPs bouchards and herbedens nodules present bilaterally Neurological: Mental status exam: alert and consciousness, orientation, memory, slurred speech Cranial nerve exam: EOM full; facial strength normal, Minor facial weakness, mild right-sided droop present, frowning noted bilaterally patient's forehead- and possibly upper motor neuron lesion Motor strength Right: 4/5 (upper & lower) Left: 3/5 (upper & lower) Motor tone / bulk Right Normal Left Mild decreased tone Sensory Right: Intact to light touch Left : Decreased / absent to light touch Reflexes (DTRs) Right: Normal Left: hyporeflexia Cerebellar finger-nose Right: Normal Left: Abnormal Cerebellar xibx-af-qwdg Right: Normal Left : Normal Gait / balance: Unstable gait, could walk a couple of steps today Skin: Warm and dry Result Diagram: 06/29/2527 06/29/2527 Coagulation Studies Laboratory Tests Test 06/27/25 21:52 Prothrombin Time 11.8 SECONDS (9.0-12.0) INR International Normalized Ratio 1.2 INR Activated Partial Thromboplast Time 30 SECONDS (22-32) Coagulation Comments Plan Plan Acute ischemic stroke left hemispheric distribution Upper motor neuron facial palsy Noncompliance with her home medication aspirin 81 mg, atorvastatin 10 mg and metoprolol tartrate 12.5 mg p.o. b.i.d. Acute left-sided weakness, new dysarthria, sensory loss, NIHSS 5 Patient was outside tPA window and hence did not receive it Tele neurology was consulted CT head reported Motion degraded evaluation. Within this limitation, no CT evidence of large intracranial hemorrhage or acute territorial infarct. No mass effect. CTA reported : No evidence of stenosis, aneurysm, or dissection. MRI report: Multiple recurrent acute anterior and posterior circulation infarcts. Echocardiogram reports Overall LVEF is 70-75%. Normal LV size and function. 21 mm Espinosa Inspiris bioprosthetic AVR appears well seated with increased velocities across the AV/LVOT. Peak / mean gradients of 82 / 54 mmHG. Peak velocity is measured at 4.52 m/sec. Tace insufficiency. Finding consistent with prosthetic aortic valve stenosis. Blood pressure is within normal limits. Patient passed her bedside swallow test today Tele neurologist recommendations: Recommended antiphospholipid antibodies as outpatient and 30 day event monitor outpatient Plan -continue clopidogrel 75mg p.o. once daily, atorvastatin 80 mg p.o. once daily, aspirin 81 mg p.o. once daily -continue telemetry monitoring Newly diagnosed First-degree and Second-degree type 2 heart block Telemetry findings today showed couple of episodes of first-degree and second- degree type 2 heart block with possible bundle-branch block Consulted Dr. Madera, recommendations Carotid ultrasound examination. MRA may not be accurate. No need for a permanent pacemaker at this time. Continue on monitor.No need for diagnostic heart catheterization at this time. Patient is back to sinus rhythm, although still couple of episodes of second- degree AV blocks noted, Carotid ultrasound reported:Atherosclerotic vascular disease with no hemodynamically significant stenosis. Any narrowing is less than 50%. Patient's heart rate in the mid 50s Plan -continue telemetry monitoring Aortic stenosis, status post diagnostic valve replacement in 2019 Pansystolic murmur heard throughout the precordium Follows outpatient with Dr. Madera Normocytic anemia 2/2 anemia of chronic disease Hb: 10.9, normal RDW and MCV Low Iron 35, low TIBC 249 normal percentage saturation 14% TSH normal, B12 within normal Cannabinoid Use Recommened cessastion of Cannabinoid Use. DVT Prophylaxis: SCDs Nutrition: Regular diet PT: Ordered Prognosis: Guarded Disposition: Patient will get discharged to post acute rehab care tomorrow Darshana Prater MD Internal Medicine Resident, PGY-1 PGY2 resident attestation: I have seen and evaluated the patient independently. I have reviewed the history, physical examination, laboratory and imaging findings and the assessment and plan documented by the PGY1 resident. I agree with the findings and plan as documented with the following additions/modifications: Disposition: Vital signs stable, doing well. Patient has been accepted at multiple rehabs. Anticipated discharge to [facility] tomorrow. Ruth Ann Toth MD PGY 2 internal medicine resident Date of Service: Jun 29, 2025 Billing Provider: ITZEL MARTIN MD, JAHNAVI, RES Jun 29, 2025 18:58 RUTH ANN SMART, RES Jun 29, 2025 20:32
[2025-06-29 20:00] VITALS: RESP 19; O2SAT 100
[2025-06-29 22:00] VITALS: BP 113/62; PULSE 65; RESP 22; TEMP 97.4; O2SAT 98
[2025-06-30 02:00] VITALS: BP 130/63; PULSE 82; RESP 16; TEMP 97.4; O2SAT 90
[2025-06-30 06:19] LABS: MEAN PLATELET VOLUME 7.9 FL (7.4-10.4); RED CELL DISTRIBUTION WIDTH 13.4 % (11.5-14.5)
[2025-06-30 06:27] LABS: CREATININE 0.89 MG/DL (0.40-0.90); TOTAL CARBON DIOXIDE 23.0 MMOL/L (24-32); eCRCL 55 ML/MIN; eGFR 64 ML/MIN
[2025-06-30 07:00] VITALS: RESP 18; O2SAT 97
[2025-06-30 07:21] VITALS: BP 114/78; PULSE 78; RESP 18; TEMP 97.4; O2SAT 97
[2025-06-30 08:00] VITALS: RESP 18; O2SAT 97
[2025-06-30 09:55] VITALS: RESP 16; O2SAT 96
--- NOTE | 2025-06-30 10:43 | DISCHARGE SUMMARY-Residence ---
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 Rosado Php Wordpress Developer - Dr. Madera Complications: None Condition on DC: Stable for transfer Discharge Summary: A 65-year-old woman with hypertension and hyperlipidemia presented with sudden onset of left-sided weakness and imbalance beginning since a day prior to admission. She reported progressive difficulty using the left arm and leg, particularly when standing or walking, associated with slurred speech that is new. She described pain and heaviness in the left extremities and inability to maintain balance but denied headache, vision loss, facial droop prior to admission, or loss of consciousness. She did not fall or strike her head. Symptoms have persisted and worsened since onset. Neurology evaluated the patient initial NIHSS = 5 (minor left facial weakness, left arm and leg drift, mild sensory loss, mild-moderate dysarthria). Given the time course she was outside the IV tPA window (>4.5 hours) and the clinical exam was suggestive of a possible CVA. On examination patient was noted to have slurred speech, right-sided droop, upper motor neuron palsy. Patient's motor strength was 3/5 left upper and lower extremity and 4/5 right upper and lower extremity, decreased to sensation was noted on left upper and lower extremities. It was also noted to have hyperreflexia on the left extremities. Patient received one dose of 300 mg clopidogrel and [address] head showed no evidence of intracranial hemorrhage. CTA was inconclusive. MRI showed multiple recurrent acute anterior and posterior circulation infarct Tele neurologist was consulted, recommended medical management and also recommended patient gets an antiphospholipid antibody and 30 day event monitor outpatient. Initially the patient asked me 81 mg, clopidogrel 75 mg and atorvastatin 80 mg. In addition patient's EKG showed couple of first-degree and second-degree type 2 blocks associated multiple bundle-branch block, . Php Wordpress Developer recommended carotid ultrasound which reported Atherosclerotic vascular disease with no hemodynamically significant stenosis. Patient has history of status post diagnostic valve replacement 2019, echocardiogram showed, if 70-75%, mild concentric hypertrophy and estimated PA systolic pressure of 59 mm of mercury, however new civar-qu-yyvo flow was noted. Prosthetic aortic valve stenosis was noted as well. Php Wordpress Developer Dr. Madera was consulted and recommended no permanent pacemaker at this point, patient converted back to sinus rhythm. Primary care provider: [facility] , Dr. Carroll Php Wordpress Developer: Dr. Madera Significant imaging Chest x-ray 06/27/2025 The lungs are clear. The cardiomediastinal silhouette is unchanged, mildly enlarged. Median sternotomy changes are noted. No pleural effusion or pneumothorax. No acute osseous abnormality. Head CT 06/27/2025 IMPRESSION: 1. Motion degraded evaluation. Within this limitation, no CT evidence of large intracranial hemorrhage or acute territorial infarct. No mass effect. 2. Age-related involutional changes. Chronic ischemic changes as detailed. 3. If clinical symptoms persist, MRI is suggested in further evaluation. Critical Result: Stroke Alert Carotid artery ultrasound 06/28/2025 Atherosclerotic vascular disease with no hemodynamically significant stenosis. Any narrowing is less than 50%. Echocardiogram 06/28/2025 Overall LVEF is 70-75%. Normal LV size and function. Mild concentric hypertrophy. RV is normal size and function. Estimated PA systolic pressure of 59 mm of mercury The left atrium size is normal. Saline study was performed with 3 IV injections of 10 ccs of agitated normal saline at rest, with cough, and with valsalva. Negative saline study for right to left flow. 21 mm Espinosa Inspiris bioprosthetic AVR appears well seated with increased velocities across the AV/LVOT. Peak / mean gradients of 82 / 54 mmHG. Peak velocity is measured at 4.52 m/sec. Tace insufficiency. Finding consistent with prosthetic aortic valve stenosis. Mitral valve leaflets are thickened with mild mitral annular calcification. Moderate stenosis present with peak / mean gradients of 15 / 8 mmHg. Mild regurgitation. The tricuspid valve is normal in structure with mild to moderate regurgitation. Pulmonic valve is grossly normal in structure with physiologic insufficiency Head MRI 06/28/2025 IMPRESSION: 1. Multiple small acute/recent infarcts in the right centrum semiovale, right color[place] radiata, right basal ganglia, right insula. 2. Tiny acute/recent infarct in the upper medial right cerebellum. 3. Mild cerebral volume loss and mild chronic microvascular ischemic change. Critical Result: Acute right sided infarcts Head CTA 06/28/2025 1. No evidence of stenosis, aneurysm, or dissection. Patient is hemodynamically stable to be transferred to rehab Physical examination the time of discharge Awake , alert, and oriented x4, resting comfortably in the bed, in no acute distress, patient continues to have slurred speech(better compared to admission) HEENT: Atraumatic, normocephalic, EOMI, anicteric sclera ; pink conjunctiva Neck: Trachea midline.Supple, full range of motion, no JVD Cardiac: Regular rhythm, regular rate with systolic murmurs all over the precordium. Respiratory: Equal breath sounds bilaterally, no tachypnea, no wheezing ,rub or rales, Chest wall is symmetric and without deformity. Midsternal scar present post aortic valve replacement Gastrointestinal: Abdomen symmetric, non-distended, soft, non-tender, normal bowel sounds x4 quadrant, normoactive, no hepatosplenomegaly Musculoskeletal: No Pedal edema, no cyanosis. Multiple nodules present on multiple DIPs bouchards and herbedens nodules present bilaterally Neurological: Mental status exam: alert and consciousness, orientation, memory, slurred speech Cranial nerve exam: EOM full; facial strength normal, Minor facial weakness, mild right-sided droop present, frowning noted bilaterally patient's forehead- and possibly upper motor neuron lesion Motor strength Right: 4/5 (upper & lower) Left: 3/5 (upper & lower) Motor tone / bulk Right Normal Left Mild decreased tone Sensory Right: Intact to light touch Left : Decreased / absent to light touch Reflexes (DTRs) Right: Normal Left: hyporeflexia Cerebellar finger-nose Right: Normal Left: Abnormal Cerebellar [id number] Right: Normal Left : Normal Gait / balance: Unstable gait, could walk a couple of steps today Skin: Warm and dry Vital Signs Date Time Temp Pulse Resp B/P (MAP) Pulse Ox O2 Delivery O2 Flow Rate FiO2 06/30/25 11:00 97.5 86 24 120/70 (87) 98 06/30/25 07:21 Room Air 06/28/25 17:06 0 21 Laboratory Tests Test 06/29/25 05:27 06/29/25 05:40 06/30/25 05:11 White Blood Count 9.2 X10'3 9.8 X10'3 Red Blood Count 3.54 X10'6 3.53 X10'6 Hemoglobin 10.5 g/dl 10.4 g/dl Hematocrit 30.6 % 30.6 % Mean Corpuscular Volume 86.5 FL 86.6 FL Mean Corpuscular Hemoglobin 29.5 PG 29.4 PG Mean Corpuscular Hemoglobin Concent 34.2 g/dL 33.9 g/dL Red Cell Distribution Width 13.3 % 13.4 % Platelet Count 262 X10'3 272 X10'3 Mean Platelet Volume 7.7 FL 7.9 FL Neutrophils (%) (Auto) 79.1 % 77.3 % Lymphocytes (%) (Auto) 11.7 % 13.7 % Monocytes (%) (Auto) 8.2 % 7.9 % Eosinophils (%) (Auto) 0.8 % 0.9 % Basophils (%) (Auto) 0.2 % 0.2 % Neutrophils # (Auto) 7.3 X10'3 7.6 X10'3 Lymphocytes # (Auto) 1.1 X10'3 1.3 X10'3 Monocytes # (Auto) 0.8 X10'3 0.8 X10'3 Eosinophils # (Auto) 0.1 X10'3 0.1 X10'3 Basophils # (Auto) 0.0 X10'3 0.0 X10'3 CBC Comment Sodium Level 137 MMOL/L 138 MMOL/L Potassium Level 3.9 MMOL/L 3.9 MMOL/L Chloride Level 105 MMOL/L 106 MMOL/L Carbon Dioxide Level 22.8 MMOL/L 23.0 MMOL/L Anion Gap 9 9 Blood Urea Nitrogen 10 MG/DL 12 MG/DL Creatinine 0.77 MG/DL 0.89 MG/DL Estimated GFR/1.73 m2 75 ML/MIN 64 ML/MIN BUN/Creatinine Ratio 13.0 13.5 Glucose Level 93 MG/DL 106 MG/DL Calcium Level 8.4 MG/DL 8.3 MG/DL Magnesium Level 1.9 MG/DL 1.7 MG/DL Total Bilirubin 0.5 MG/DL 0.4 MG/DL Aspartate Amino Transf (AST/SGOT) 22 U/L 22 U/L Alanine Aminotransferase (ALT/SGPT) 6 U/L 10 U/L Alkaline Phosphatase 120 IU/L 116 IU/L Total Protein 6.5 G/DL 6.4 G/DL Albumin 2.5 G/DL 2.5 G/DL Globulin 4.0 G/DL 3.9 G/DL Albumin/Globulin Ratio 0.6 0.6 Triglycerides Level 58 MG/DL Cholesterol Level 127 MG/DL LDL Cholesterol 75 MG/DL HDL Cholesterol 38 MG/DL Cholesterol/HDL Ratio 3.3 Chemistry Comments Urine Specimen Description Cln catch midstream Urine Color Yellow Urine Clarity Clear Urine pH 6.5 Urine Specific Burchard 1.010 Urine Protein Negative mg/dl Urine Glucose (UA) Negative mg/dl Urine Ketones Negative mg/dl Urine Occult Blood Negative Urine Nitrite Negative Urine Bilirubin Negative Urine Urobilinogen 1.0 E.U/dL Urine Leukocyte Esterase Negative Urine Culture Indicated Not ind Volume Urine Centrifuged 10 ml Urine Eosinophils No eos /HPF Urine Osmolality 604 MOSM/K Urine Random Creatinine 77.0 MG/DL Urine Random Sodium 161 MEQ/L Urine Random Potassium 24 MEQ/L Urine Comment Urine Opiates Screen Negative Urine Methadone Screen Negative Urine Fentanyl Screen Negative Urine Barbiturates Screen Negative Urine Phencyclidine Screen Negative Urine Amphetamines Screen Positive Urine Benzodiazepines Screen Negative Urine Cocaine Screen Negative Urine Cannabinoids Screen Positive Drug Screen Comment Discharge instructions Strict adherence to medications as advised 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 *Problems/Diagnosis: (1) Aortic stenosis (2) S/P AVR Total Time Spent on D/C: > 30 Minutes Date of Service: Jun 30, 2025 Billing Provider: WHITNEY FALLON MD Common Visit Codes: 56357-BTU/OBS DISCH DAY >30min AMOR PRATER, RES Jun 30, 2025 10:43 WHITNEY FALLON MD Jun 30, 2025 18:28
[2025-06-30 11:00] VITALS: BP 120/70; PULSE 86; RESP 24; TEMP 97.5; O2SAT 98
== END 2025-06-30 14:17 | DRG 65 ==
LOC: ER 21:31 → ED HOLD 22:58 → PCU 3S 06-28 00:05
PROVIDERS: ADMIT Internal Medicine; ATTEND Family Medicine
PROC: B3251ZZ Computerized Tomography (CT Scan) of Bilateral Common Carotid Arteries using Low Osmolar Contrast (ICD-10-PCS; principal; 2025-06-28)
PROC: B32G1ZZ Computerized Tomography (CT Scan) of Bilateral Vertebral Arteries using Low Osmolar Contrast (ICD-10-PCS; 2025-06-28)
PROC: B32R1ZZ Computerized Tomography (CT Scan) of Intracranial Arteries using Low Osmolar Contrast (ICD-10-PCS; 2025-06-28)
PROC: B3281ZZ Computerized Tomography (CT Scan) of Bilateral Internal Carotid Arteries using Low Osmolar Contrast (ICD-10-PCS; 2025-06-28)
DX: I63.9 Cerebral infarction, unspecified (principal); G81.94 Hemiplegia, unspecified affecting left nondominant side; I44.1 Atrioventricular block, second degree; I11.0 Hypertensive heart disease with heart failure; I50.9 Heart failure, unspecified; E78.5 Hyperlipidemia, unspecified; D63.8 Anemia in other chronic diseases classified elsewhere; R29.705 NIHSS score 5; I44.7 Left bundle-branch block, unspecified; Z79.82 Long term (current) use of aspirin; Z79.899 Other long term (current) drug therapy; Z90.710 Acquired absence of both cervix and uterus; Z95.3 Presence of xenogenic heart valve; G51.0 Bell's palsy; I35.0 Nonrheumatic aortic (valve) stenosis
CPT/HCPCS: 36415; 70450; 70496; 70498; 70551; 71045; 80048; 80053; 80061; 80305; 81003; 82570; 82607; 82728; 82948; 83036; 83540; 83550; 83735; 83930; 83935; 84133; 84300; 84443; 85025; 85610; 85730; 86885; 86900; 86901; 87081; 87207; 92508; 92616; 93005; 93306; 93880; 97116; 97161; 97530; 99291; G0378; J7030; Q9967

== ENCOUNTER 2025-08-09 11:03 | Outpatient (CLI) | payer BC, MEDICAID ==
[~2025-08-09 11:03] MED LIST changes: -ATOR10TA PO; -HYDR-3972 PO; +IODIXANOL 320 MG/ML INFUS..BTL 100ML IV ONE; -LOP12.5T PO
[2025-08-09 11:37] LABS: MEAN PLATELET VOLUME 7.7 FL (7.4-10.4); RED CELL DISTRIBUTION WIDTH 14.1 % (11.5-14.5)
[2025-08-09 11:51] LABS: APTT 28 SECONDS (22-32); INR 1.2 INR
[2025-08-09 11:59] LABS: CREATININE 0.84 MG/DL (0.40-0.90); PRO BRAIN NATRIURETIC PEPTIDE 2019 PG/ML (0-125); TOTAL CARBON DIOXIDE 22.1 MMOL/L (24-32); eGFR 68 ML/MIN
--- NOTE | 2025-08-10 14:25 | RADIOLOGY REPORT ---
CT CTA TAVR INDICATION: Alveolar placement TECHNIQUE: Gated CT angiography of the heart was performed along with CT angiography of the lower neck, chest, abdomen, and pelvis. MIP, MPR, and 3-D images were obtained. Measurements were performed on the [employer] workstation. All CT scans at this facility use dose modulation, iterative reconstruction, and/or weight based dosing when appropriate to reduce radiation dose to as low as reasonably achievable. COMPARISON: CT CTA NECK/HEAD on DOS: 06/28/25 FINDINGS: ANNULAR PLANE DISTANCE: 20.2 x 14.6 mm AREA: 2.21 cm2 AVERAGE DIAMETER: 17.4 mm PERIMETER: 54.2 mm LEFT CORONARY ARTERY HEIGHT ABOVE ANNULAR PLANE: 14.3 mm RIGHT CORONARY ARTERY HEIGHT ABOVE ANNULAR PLANE: 14 mm LEFT CORONARY SINUS DIAMETER: 34.7 mm RIGHT CORONARY SINUS DIAMETER: 31.3 mm NONCORONARY CORONARY SINUS DIAMETER: 33.4 mm SINOTUBULAR JUNCTION DIAMETER: 25.8 mm RIGHT COMMON ILIAC ARTERY MINIMAL DIMENSIONS: 6.5 mm RIGHT EXTERNAL ILIAC ARTERY MINIMAL DIMENSIONS: 4.9 mm RIGHT COMMON FEMORAL ARTERY MINIMAL DIMENSIONS: 6.1 mm LEFT COMMON ILIAC ARTERY MINIMAL DIMENSIONS: 7.5 mm LEFT EXTERNAL ILIAC ARTERY MINIMAL DIMENSIONS: 4.9 mm LEFT COMMON FEMORAL ARTERY MINIMAL DIMENSIONS: 6.1 mm [LOWER NECK]: Unremarkable [LYMPH NODES/MEDIASTINUM]: No abnormal lymph nodes by CT size criteria [CARDIOVASCULAR]: Moderate cardiomegaly. No pericardial effusion. No aneurysmal dilatation of the great vessels. No significant coronary artery calcifications. leave this pacemaker implant along the right ventricle. Prior valvular replacement. Prominence of the main pulmonary artery, which may indicate pulmonary hypertension. Atrial appendage osseous are clear without evidence of thrombus. Question concentric left ventricular hypertrophy. [LUNG PARENCHYMA/PLEURAL SPACE]: No consolidation, suspicious focal airspace opacity, or suspicious nodules. No pleural effusion or pneumothorax. Atelectasis in bilateral lung bases. Pneumatocele in the superior segment, right lower lobe. [CHEST WALL]: Unremarkable. [LIVER]: Question flash filling hemangioma in the hepatic segment 4A [SPLEEN]: large area of hypoattenuation of the spleen which may represent splenic infarct measuring 4.3 x 3.9 cm [PANCREAS]: Unremarkable. [GALLBLADDER AND BILIARY TREE]: No cholelithiasis. No biliary dilatation. [ADRENAL GLANDS]: Unremarkable [KIDNEYS]: No hydronephrosis. No nephroureterolithiasis. No suspicious focal lesion. [BLADDER]: Unremarkable for the degree distention. [PELVIC ORGANS]: Hysterectomy. [BOWEL/MESENTERY]: Stomach is normal. No CT evidence of bowel obstruction. [id number] stool burden. Correlate for constipation. [ASCITES]: Absent [LYMPHADENOPATHY]: No pathologically enlarged lymph nodes by CT size criteria [VASCULATURE]: Vascular calcifications. [ABDOMINAL WALL]: Unremarkable. [MUSCULOSKELETAL]: No acute fracture or aggressive focal osseous lesion. Multifocal degenerative change of the visualized spine. IMPRESSION: 1. No CTA evidence of aortic dissection or pulmonary embolism. 2. No CTA evidence of hemodynamically significant stenosis of the bilateral common carotid arteries. 3. No CTA evidence of hemodynamically significant stenosis of the bilateral common iliac arteries. 4. No CTA evidence of hemodynamically significant stenosis of the bilateral common femoral arteries. 5. Moderate cardiomegaly. 6. Question concentric left ventricular hypertrophy. 7. Large area of hypoattenuation of the spleen which may represent splenic infarct measuring 4.3 x 3.9 cm. Right hilar lymph node measuring 1.3 cm. Right lower paratracheal lymph node measures 1.2 cm. Overall imaging findings indeterminate. 8. Presumed elevated right heart pressures.
== END 2025-08-09 23:59 | disposition home or self-care (01) ==
LOC: RAD 11:03
PROVIDERS: ATTEND Internal Medicine Cardiovascular Disease
DX: I51.7 Cardiomegaly (principal); I35.0 Nonrheumatic aortic (valve) stenosis; R06.02 Shortness of breath; I65.29 Occlusion and stenosis of unspecified carotid artery
CPT/HCPCS: 36415; 71275; 74174; 75572; 80053; 83880; 85025; 85610; 85730; Q9967

== ENCOUNTER 2025-09-01 13:26 | Outpatient (CLI) | payer BC, MEDICAID ==
[~2025-09-01 13:26] MED LIST changes: -ASPI-1071 PO; +ASPI81TA52 PO; +ATOR-429 PO; +HYDR-3972 PO; -IODIXANOL 320 MG/ML INFUS..BTL 100ML IV ONE; +PANT40TA54 PO; +WARF2.5T82 PO
[2025-09-01 14:30] LABS: INR 2.4 INR
== END 2025-09-01 23:59 | disposition home or self-care (01) ==
LOC: LAB 13:26
PROVIDERS: ATTEND Physician Assistant
DX: Z95.2 Presence of prosthetic heart valve (principal)
CPT/HCPCS: 36415; 85610

== ENCOUNTER 2025-09-19 12:45 | Outpatient (CLI) | payer BC, MEDICAID ==
[2025-09-19 13:29] LABS: INR 2.3 INR
== END 2025-09-19 23:59 | disposition home or self-care (01) ==
LOC: LAB 12:45
PROVIDERS: ATTEND Family Medicine
DX: Z79.01 Long term (current) use of anticoagulants (principal)
CPT/HCPCS: 36415; 85610